=== PATIENT | female | born 1980 | race Caucasian/White ===

== ENCOUNTER → 2017-06-11 | Outpatient (CLI) | payer MEDICAID ==
[~2017-06-11] MED LIST: FOLIC ACID 1MG T1 MG PO; PRENATAL PLUS1 TA1 PO
== END ==
LOC: LAB 10:29
DX: O24.415 Gestational diabetes mellitus in pregnancy, controlled by oral hypoglycemic drugs (principal); Z36 Encounter for antenatal screening of mother

== ENCOUNTER 2017-06-28 09:24 | Inpatient (IN) | payer MEDICAID ==
[~2017-06-28] VITALS: Ht 154.9 cm; Wt 91.2 kg
[2017-06-28 09:44] LABS: HEMOGLOBIN 12.7 g/dL (12.2-16.2); LYMPH % 18.6 % (10-50.0)
[2017-06-28 09:57] LABS: BILIRUBIN, INDIRECT 0.44 mg/dL (0-0.9); BUN 4 mg/dL (7-18)
[2017-06-28 09:58] LABS: GFR (ESTIMATED) 112 ML/MIN (59-)
--- OUTSIDE RECORDS SUMMARY | 2017-06-28 14:45 | External Medical Summary Rpt ---
Author Author , ALISSA MAXWELL Address Unknown Phone [email or web address] Care Team Providers Care Nozzle Tender Name Role Phone MCGEE HOL, MCGEE Unavailable Unavailable [facility] Unavailable [facility]available [facility], [facility] Unavailable Unavailable [facility], [facility] Unavailable Unavailable DEPARTMENT, [facility] Unavailable Unavailable [facility], [facility] TOMASZ TER, TOMASZ TER Unavailable Unavailable [facility] Unavailable Unavailable [id number], Unavailable Unavailable [id number], Unavailable Unavailable [facility] ANA, T, ANA, T Unavailable Unavailable CHAD DORY, CHAD Unavailable Unavailable DORY SARAH JARRELL MD, Unavailable Unavailable SARAH BACA TAVON, PHUONG MONTES DE OCA Unavailable Unavailable HARPEL, HARPEL Unavailable Unavailable [facility] BROOK, HARPEL Unavailable Unavailable [facility] Un[facility] Unavailable [facility], [facility] SERRANO, SERRANO Unavailable Unavailable SERRANO, SERRANO Unavailable Unavailable SERRANO MANUEL, SERRANO MANUEL Unavailable Unavailable [facility], Unavailable Unavailable [facility] Unavailable Unavailable [facility], [facility] Unavailable Unavailable INTERNAL MED, [facility] FERREIRA KAYLA, FERREIRA Unavailable Unavailable KAYLA [facility] Unavailable Unavailable [facility], [facility], Unavailable [facility]available [facility] Unavailable [facility]available [facility], Unavailable Unavailable [facility], [facility], Unavailable Unavailable [facility], Unavailable Unavailable [facility] Unavailable Unavailable LLC, [facility] AAYUSH OCONNOR, Unavailable Unavailable AAYUSH OCONNOR SOKAN BAB, SOKAN BAB Unavailable Unavailable [facility], Unavailable Unavailable [facility] TAWANA SHE, Unavailable Unavailable TAWANA SHE [facility] Unavailable Unavailable [facility] Unavailable Unavailable CLINIC, [facility] CEASAR MCINTYRE, Unavailable Unavailable CEASAR MCINTYRE NEW SHARON D, Unavailable Unavailable NEW SHARON D Purpose Continuity of Care Document - 02-22-2008 through 2016 Problems Code Diagnosis DOS Provider Status Z131 ENCOUNTER 05-28-2017 [facility] SCREENING GROUP FOR DIABETES MELLITUS Z3480 ENC 05-28-2017 [facility] SUPERVISION PHYSICIANS OT NORMAL GROUP PREG UNS TRIMESTER N760 ACUTE 04-16-2017 [facility] VAGINITIS PHYSICIANS GROUP Z3483 ENC 04-16-2017 [facility] PHYSICIANS OTH NORMAL GROUP 3 TRIMESTER Z3492 ENC 03-26-2017 [facility] SUPER[facility]ION PHYSICIANS NORMAL GROUP UNS 2 TRIMESTER Z36 ENCOUNTER 02-18-2017 [facility] SCREENING OF MOTHER H5203 HYPERMETROP 12-17-2016 SERRANO IA BILATERAL N925 OTHER 11-26-2016 [facility] SPECIFIED PHYSICIANS IRREGULAR GROUP MENSTRUATIO N C62429 ENCOUNTER 11-26-2016 [facility] MANAGER OF COMPENSATION EXAM PHYSICIANS GENERAL RTN GROUP W/O ABNORMAL FIND O021 MISSED 04-07-2016 [facility] O034 INCOMPLETE 04-07-2016 [facility] W/O COMPLICATIO N A021 SALMONELLA 04-06-2016 [facility] Z96320 ENCOUNTER 04-06-2016 [facility] PREPROCEDUR INC AL LABORATORY EXAM O200 THREATENED 04-05-2016 [facility] G02861 ENCOUNTER 04-02-2016 SARAH Leonardo MANAGER OF COMPENSATION EXAM WESLY RAINES GENERAL RTN W/ABNORMAL FIND Z048 ENCOUNTER 04-02-2016 [facility] OTHER SPEC S REASONS E21789 MIGRAINE 04-01-2016 [facility] UNS NOT PHYSICIANS, INTRACT W/O PLLC STATUS MIGRAINOSUS O2691 04-01-2016 [facility] RELATED PHYSICIANS, CONDITIONS PLLC UNS 1ST TRIMESTER Z3A01 LESS THAN 8 04-01-2016 [facility] GESTATION INC OF R51 HEADACHE 03-31-2016 [facility] O039 COMPLETE OR 01-09-2016 [facility] P[facility] W/O COMPLICATIO N N912 AMENORRHEA 01-02-2016 [facility] Z3201 ENCOUNTER 01-02-2016 [facility] [facility] TEST RESULT POSITIVE Z3481 ENC 12-19-2015 [facility] OTH NORMAL 1 TRIMESTER B86 SCABIES 12-17-2015 [facility] INTERNAL MED 3670 HYPERMETROP 01-08-2011 [facility] V0481 NEED 12-10-2010 [facility] PROPHYLACTI HEALTH DEPARTMENT VACCINATION &INOCULATIO N FLU V5883 ENCOUNTER 08-25-2010 [facility] THERAPEUTIC CLINIC DRUG MONITORING 94549 FEVER 08-01-2009 [facility] INC 4659 ACUTE URIS 07-27-2009 [facility] UNSPECIFIED HOSPITAL SITE 3804 IMPACTED 05-17-2008 [facility] G43.909 MIGRAINE, UNSP, NOT INTRACTABLE , WITHOUT STATUS MIGRAINOSUS Z33.1 STATE, INCIDENTAL Z34.90 ENCNTR FOR SUPRVSN OF NORMAL , UNSP, UNSP TRIMESTER Medications Na ND Rx Da Fi Fi Am Da Di Ph RX Ph St me C No te ll ll ou ys ag ar # ys at rm s nt no ma ic us Or Da si cy ia de te s n re d AR 17 01 03 30 30 00 SO Ac OG 47 -2 -0 .0 00 PE ti ES 80 7- 3- 00 00 RS ve TE 76 20 20 55 RO 61 17 17 46 FA NE 0 85 NV LY [address] MG UG CA PS UL E IR 57 12 02 30 30 00 SO Ac ON 89 -2 -0 .0 00 PE ti 60 9- 3- 00 00 RS ve 65 70 20 20 55 31 16 17 22 FA MG 0 65 NV LY TA BL DR ET UG SE 31 10 10 1 30 30 SO 35 GH Ac RT 72 -0 -0 .0 PE 35 AN ti RA 20 1- 1- 00 RS 48 TA ve LI 21 20 20 NE 40 10 10 FA RA 5 NV ME HC LY SH L 10 DR 0 UG MG TA BL ET HY 00 10 10 1 90 30 SO [address] 18 -0 -0 .0 PE 35 AN ti OX 50 1- 1- 00 RS 49 TA ve YZ 61 20 20 IN 50 10 10 FA RA E 5 NV ME PA LY SH M 50 DR UG MG CA P 24 10 10 1 30 30 SO 35 GH Ac 38 -0 -0 .0 PE 35 AN ti 50 1- 1- 00 RS 52 TA ve 44 20 20 37 10 10 FA RA 8 NV ME LY SH DR UG TR 50 10 10 1 30 30 SO 35 TA Ac AZ 11 -0 -0 .0 PE 35 MA ti OD 10 1- 1- 00 RS 51 RE ve ON 43 20 20 N E 30 10 10 FA JA 50 3 NV NE LY T MG DR TA UG BL ET 00 02 04 00 15 4 SO 27 No Ac 60 -2 -0 .0 PE 71 t ti 33 6- 7- 00 RS 74 Av ve 88 20 20 ai 23 08 08 FA la 2 NV bl LY e DR UG 00 02 04 00 20 10 SO 27 No Ac 02 -2 -0 .0 PE 71 t ti 96 6- 7- 00 RS 73 Av ve 09 20 20 ai 66 08 08 FA la 0 NV bl LY e DR UG TR 60 02 03 00 60 30 CV 46 No Ac AZ 50 -2 -2 .0 S 21 t ti OD 52 0- 6- 00 PH 19 Av ve ON 65 20 20 AR ai E 30 08 08 MA la 50 1 CY bl e MG #3 01 TA 6 BL ET Results Labs Lab Lab Date Result Refere Interp Status Commen Order Detail nces retati t Range on Hemoglobin A1c in Blood (06-11-2017 10:30) Hemoglo 5.0 % 0.0% Normal complet bin A1c 017 - ed in 10:30 7.0% Blood Glucose [Mass/volume] in Serum or Plasma --3 hours post XXX challenge (06-09-2017 08:44) Glucose 2+ complet 017 ed [Presen 08:44 ce] in Urine by Test strip --3 hours post dose glucose Glucose [Mass/volume] in Serum or Plasma --3 hours post XXX challenge (06-09-2017 08:44) Glucose 3+ complet 017 ed [Presen 08:44 ce] in Urine by Test strip --2 hours post dose glucose Glucose [Mass/volume] in Serum or Plasma --3 hours post XXX challenge (06-09-2017 08:44) Glucose 3+ complet 017 ed [Presen 08:44 ce] in Urine by Test strip Glucose NEGATIV complet 017 E ed [Presen 08:44 ce] in Urine by Automat ed test strip Glucose [Presence] in Urine by Test strip --1 hour post 75 g glucose PO (05-21-2017 09:44) Glucose TRACE complet 017 ed [Presen 09:44 ce] in Urine by Test strip Procedures Procedure DOS Code Location Performer Comment SMR PRIM 08152 [facility] SRC WET 7 PHYSICIAN [place] GROUP NFCT AGT US PREG 19431 [facility] UTERUS 7 PHYSICIAN REAL TIME S GROUP F/U TRNSABDL PER FETUS COLLECTIO 70981 [facility] N VENOUS 7 [facility] BLOOD INC INC VENIPUNCT URE OPHTH 97130 [facility] 7 XM&EVAL COMPRE NEW PT 1/> VST CULTURE 18372 [facility] CHLAMYDIA 6 PHYSICIAN ANY S GROUP SOURCE URINE 55052 [facility] 6 PHYSICIAN TEST S GROUP VISUAL COLOR CMPRSN METHS IADNA 86108 [facility] NEISSERIA 6 PHYSICIAN S GROUP GONORRHOE AE DIRECT PROBE TQ IADNA 02857 [facility] HERPES 6 PHYSICIAN SIMPLX S GROUP VIRUS DIRECT PROBE TQ IAADIADOO 53638 [facility] PEDIATRIC 6 PHYSICIAN PRODUCTS TRICHOMON S GROUP LLC VAGINALIS URINLS 78089 [facility] DIP 6 PHYSICIAN STICK/TAB S GROUP LET REAGNT NON-AUTO MICRSCPY UNCLASSIF J3490 [facility] IED DRUGS 6 [facility] INC INC BLOOD 24796 [facility] COUNT 6 [facility] HEMOGLOBI INC INC N BLOOD 42267 [facility] COUNT 6 [facility] HEMATOCRI INC INC T ANESTHESI 28279 [facility] A INDUCED 6 [place] [address] [facility] SURG 6 [facility] PATHOLOGY GROSS&DORY ROSCOPIC EXAM INJECTION J2405 [facility] 6 [facility] ONDANSETR INC INC ON HCL PER 1 MG COLLECTIO 28977 [facility] N VENOUS 6 [facility] [place] [address] SARAH JARRELL INCOMPLET 6 WESLY RAINES [place]OOK E ANY TRIMESTER SURGICAL COLLECTIO 42503 [facility] N VENOUS 6 [facility] BLOOD INC INC VENIPUNCT URE BLOOD 88641 [facility] COUNT 6 [facility] COMPLETE INC INC AUTO&AUTO DIFRNTL WBC CULTURE 73655 [facility] BACTERIAL 6 [facility] INC INC QUANTTATI VE COLONY COUNT URINE URNLS DIP 19757 [facility] 6 [facility] STICK/TAB INC INC LET REAGENT AUTO MICROSCOP Y BLOOD 70274 [facility] TYPING 6 [facility] SEROLOGIC INC INC RH (D) ANTIBODY 11416 [facility] SCREEN 6 [facility] RBC EACH INC INC SERUM TECHNIQUE BLOOD 67894 [facility] TYPING 6 [facility] SEROLOGIC INC INC ABO GONADOTRO 98127 [facility] PIN 6 [facility] CHORIONIC INC INC QUANTITAT FLAKITA DRUG TST G0477 [facility] PRESUMP;C 6 [facility] PBL BEING INC INC READ DC OPT OBV ONLY CULTURE 93767 SARAH JARRELL CHLAMYDIA 6 WESLY RAINES [place]OOK ANY SOURCE IADNA 87800 [facility] HERPES 6 REFERNCE REFERNCE SOMPLX LABORATOR LABORATOR VIRUS IES IES AMPLIFIED PROBE TQ IADNA 98249 SARAH JARRELL NEISSERIA 6 WESLY RAINES BROOK GONORRHOE AE DIRECT PROBE TQ IADNA 86244 [facility] NEISSERIA 6 REFERNCE REFERNCE LABORATOR LABORATOR GONORRHOE IES IES AE AMPLIFIED PROBE TQ IADNA NOS 89017 BIO BIO 6 REFERNCE REFERNCE AMPLIFIED LABORATOR LABORATOR PROBE TQ IES IES EACH ORGANISM IADNA 10744 BIO BIO GARDNEREL 6 REFERNCE REFERNCE LA LABORATOR LABORATOR VAGINALIS IES IES AMPLIFIED PROBE TQ CYTP C/V 45694 [facility] B[facility] AUTO THIN 6 REFERNCE REFERNCE LYR LABORATOR LABORATOR PREPJ SCR IES IES MNL RESCR PHYS IADNA 64387 [facility]IO CHLAMYDIA 6 REFERNCE REFERNCE LABORATOR LABORATOR TRACHOMAT IES IES IS AMPLIFIED PROBE TQ IADNA 16265 SARAH JARRELL HERPES 6 WESLY RAIN[place]OOK SIMPLX VIRUS DIRECT PROBE TQ URINLS 79023 SARAH JARRELL DIP 6 WESLY RAINES BROOK STICK/TAB LET REAGNT NON-AUTO MICRSCPY IADNA 12240 [facility]IO BIO TRICHOMON 6 REFERNCE REFERNCE LABORATOR LABORATOR VAGINALIS IES IES AMPLIFIED PROBE TECH IAADIADOO 49163 SARAH SMITH R Luis JARRELL MD TRICHOMON VAGINALIS URINE 63450 SARAH JARRELL 6 WESLY RAINES BROOK TEST [place] [address] [facility] INFUSION 6 [facility] THERAPY/P INC INC ROPHYLAXI S /DX 1ST TO 1 HR THERAPEUT 04970 [facility] IC 6 [facility] INJECTION INC INC IV PUSH EACH NEW DRUG BLOOD 81801 [facility] COUNT 6 [facility] COMPLETE INC INC AUTO&AUTO DIFRNTL WBC UNCLASSIF J3490 [facility] IED DRUGS 6 [facility] INC INC GONADOTRO 76098 [facility] PIN 6 [facility] CHORIONIC INC INC QUALITATI VE COMPREHEN 07626 [facility] SIVE 6 [facility] METABOLIC INC INC PANEL URNLS DIP 34567 [facility] 6 [facility] STICK/TAB INC INC LET REAGENT AUTO MICROSCOP Y URINE 09058 [facility] 6 [facility] TEST INC INC VISUAL COLOR CMPRSN METHS GONADOTRO 90718 [facility] PIN 6 [facility]OS[facility] CHORIONIC INC INC QUANTITAT FLAKITA THERAPEUT 03021 GISELE JAQUEZ IC 6 [facility] TIC/DX INJECTION SUBQ/IM INJECTION J2270 GISELE JAQUEZ MORPHINE 6 [facility] UP TO 10 MG URINE 27379 [place] [facility] 6 [facility] TEST HEALTH VISUAL CARE COLOR CMPRSN METHS URINALYSI 86071 [facility] S 6 [facility] IA SCR CARE XCPT CULTURE/D IPSTICK [place] MISSED 47058 [facility] 6 [facility] TRIMESTER CARE SURGICAL INJECTION J[address] CEFAZOLIN SODIUM 500 MG INJECTION J1885 [address] KETOROLAC TROMETHAM INE PER 15 MG INJECTION J3010 [facility] FENTANYL [address] [place] [address] CITRATE 0.1 MG ANESTHESI 38214 [facility] [place] [place] A 6 ANESTHESI INCOMPLET A PSC E/[place] [address] [facility] SURG [address] [place] [address] PATHOLOGY GROSS&DORY ROSCOPIC EXAM INJECTION J[address] ONDANSETR ON HCL PER 1 MG INJECTION J1100 [address] DEXAMETHO SONE SODIUM PHOSPHATE 1 MG INJECTION J2001 [address] LIDOCAINE HCL INTRAVENO US INFUS 10 MG INJECTION J2590 [facility] OXYTOCIN [address] [place] [address] UP TO 10 UNITS RINGERS J7120 [facility] LACTATE [address] [place] [address] INFUSION UP TO 1000 CC URINE 72008 [facility] 6 [facility] TEST HEALTH VISUAL CARE COLOR CMPRSN METHS URINALYSI 18287 [facility] S 6 [facility] IA SCR CARE XCPT CULTURE/D IPSTICK URINALYSI 29139 [facility] S 6 [facility] IA SCR CARE XCPT CULTURE/D IPSTICK URINE 62591 [facility] 6 [facility] HEALTH [place]ISUAL [place] [address] [facility] 6 [facility] UTERUS 14 HEALTH WK CARE TRANSABDL GESTAT US PREG 18082 [facility] UTERUS 6 PRIMARY JR FRANCISCO JAVIER REAL TIME HEALTH W/IMAGE CARE DCMTN TRANSVAG GONADOTRO 74291 PATH PATH PIN 6 GROUP GROUP [facility] QUANTITAT FLAKITA OBSTETRIC 14509 PATH PATH PANEL 6 GROUP GROUP [facility] DRUG TEST G0479 PATH PATH 6 GROUP GROUP PRESUMP;I [facility]S [facility] [place] [address] PATH PATH THYROID 6 GROUP GROUP STIMULATI [facility] NG HORMONE TSH CFTR GENE [address] ANALYSIS 6 D COMMON PATHOLOGI VARIANTS STS LLC ANTIBODY 47325 PATH PATH VARICELLA 6 GROUP GROUP -[facility]OSTER [facility] HEPATITIS 29483 PATH PATH C 6 GROUP GROUP ANTIBODY [facility] DRUG TEST G0480 PATH PATH DEFINITV [address] ID [facility] METH P DAY 1-7 DRUG CL OPHTH 57303 [facility] SERRANO [facility] 1 VISION XM&EVAL COMPRE NEW PT 1/> VST ECG [address] [facility] ROUTINE 0 ANASTACIO D ECG CARDIOLOG W/LEAST Y CLINIC 12 LDS I&R ONLY IAADIADOO [address] THERAPEUT [address] PROPHYLAC [facility] TIC/DX INJECTION SUBQ/IM WOUND G0168 [facility] BURNS CLOS[facility] 8 [facility]OSPITAL TISSUE ADHESIVE ONLY Encounters Encounter Start End Date Code Location Performer Type Date OFFICE 62871 [facility] OUTPATIEN 7 7 PHYSICIAN T VISIT S GROUP 15 MINUTES OFFICE 04869 [facility] OUTPATIEN 7 7 PHYSICIAN T VISIT S GROUP 15 MINUTES OFFICE 93072 [facility] OUTPATIEN 7 7 PHYSICIAN T VISIT S GROUP 15 MINUTES OFFICE 21589 [facility] OUTPATIEN 7 7 PHYSICIAN T VISIT S GROUP 15 MINUTES OFFICE 66417 [facility] OUTPATIEN 7 7 PHYSICIAN T VISIT S GROUP 15 MINUTES [facility] 7 7 [facility] 48607 [facility] OUTPATIEN 7 7 PHYSICIAN T VISIT S GROUP 15 MINUTES OFFICE 01366 [facility] OUTPATIEN 7 7 PHYSICIAN T VISIT S GROUP 15 MINUTES [facility] 55975 [facility] [place] PREVENTIV 6 6 PHYSICIAN E MED EST S GROUP PATIENT 18-39 YRS HOSPITAL [facility] - 6 6 [facility] - 6 6 [facility] - 6 6 [facility] - 6 6 [facility] INITIAL 21151 SARAH JARRELL PREVENTIV 6 6 W[facility] [place] MEDICINE NEW PT AGE 18-39YRS EMERGENCY 20948 [facility] 6 6 [facility]NOTE 3] T VISIT MODERATE SEVERITY EMERGENCY 30720 KATHY BONILLA 6 6 [facility] T VISIT HIGH/URGE NT SEVERITY HOSPITAL [facility] - 6 6 [facility] 12403 [facility] 6 [facility] [place] T VISIT LOW/MODER SEVERITY [facility] - 6 6 [facility] EMERGENC[facility] 77342 [facility] 6 6 [facility] T VISIT PHYS MODERATE SEVERITY [facility]OSPITAL [facility] - 6 6 [facility] OFFICE 74761 [facility] 6 6 PRIMARY T VISIT HEALTH 15 CARE MINUTES OFFICE 92349 [place] OUTPATIEN 6 6 PRIMARY JR FRANCISCO JAVIER T 60 HEALTH MINUTES CARE OFFICE 59054 [facility] 6 6 [facility] T 30 INTERNAL MINUTES MED EMERGENCY 99311 [facility] 9 9 [facility] T VISIT PHYS INC MODERATE SEVERITY EMERGENCY 87211 [facility] 9 9 [facility] T VISIT LOW/MODER SEVERITY HOSPITAL [facility] - 9 9 [facility] T EMERGENCY [address] KATY [address] [facility] T VISIT LOW/MODER SEVERITY EMERGENCY 65511 KATY OCONNOR 8 8 CO , [facility] T VISIT LIMITED/M INOR [facility] KATY Diallo 8 8 [facility] T
--- OUTSIDE RECORDS SUMMARY | 2017-06-28 14:45 | External Medical Summary Rpt ---
Author Author , ALISSA MAXWELL Address Unknown Phone [email or web address] Care Team Providers Care Product Support Sales Representative Name Role Phone MCGEE HOL, MCGEE Unavailable Unavailable [facility] Unavailable [facility]available [facility], [facility] Unavailable Unavailable [facility] Unavailable Unavailable DEPARTMENT, [facility] Unavailable [facility]available HOSPITAL, [facility] TOMASZ TER, TOMASZ TER Unavailable Unavailable [facility] Unavailable Unavailable [id number], Unavailable Unavailable [id number], Unavailable Unavailable [facility] [...] Unavailable SERRANO MANUEL, SERRANO MANUEL Unavailable Unavailable [facility], Unavailable Unavailable [facility] Unavailable [facility]available [facility], [facility] Unavailable Unavailable INTERNAL MED, [facility] FERREIRA KAYLA, FERREIRA Unavailable Unavailable KAYLA [facility] Unavailable Unavailable [facility], [facility], Unavailable [facility]available [facility] Unavailable Unavailable LABS, [...] TAWANA SHE, Unavailable Unavailable TAWANA SHE [facility] Unavailable Unavailable [facility] Unavailable Unavailable CLINIC, [facility] CEASAR MCINTYRE, Unavailable Unavailable CEASAR MCINTYRE [facility], Unavailable Unavailable [facility] Purpose Continuity of Care Document - 02-22-2008 through 2016 Problems Code Diagnosis DOS Provider Status Z131 ENCOUNTER 05-28-2017 [facility] SCREENING GROUP FOR DIABETES MELLITUS Z3480 ENC 05-28-2017 [facility]ANS OT NORMAL GROUP PREG UNS TRIMESTER N760 ACUTE 04-16-2017 [facility] VAGINITIS PHYSICIANS GROUP Z3483 ENC 04-16-2017 [facility]ANS OTH NORMAL GROUP 3 TRIMESTER Z3492 ENC 03-26-2017 [facility] PHYSICIANS NORMAL GROUP UNS 2 TRIMESTER Z36 ENCOUNTER 02-18-2017 [facility] SCREENING OF MOTHER H5203 HYPERMETROP 12-17-2016 SERRANO IA BILATERAL N925 OTHER 11-26-2016 [facility] SPECIFIED PHYSICIANS IRREGULAR GROUP MENSTRUATIO N M54592 ENCOUNTER 11-26-2016 [facility] DESIGN COORDINATOR EXAM PHYSICIANS GENERAL RTN GROUP W/O ABNORMAL FIND O021 MISSED 04-07-2016 [facility] O034 INCOMPLETE 04-07-2016 [facility] W/O COMPLICATIO N A021 SALMONELLA 04-06-2016 [facility] I77828 ENCOUNTER 04-06-2016 [facility] PREPROCEDUR INC AL LABORATORY EXAM O200 THREATENED 04-05-2016 [facility] O60119 ENCOUNTER 04-02-2016 SARAH Leonardo DESIGN COORDINATOR EXAM WESLY RAINES GENERAL RTN W/ABNORMAL FIND Z048 ENCOUNTER 04-02-2016 [facility]ATORIE OTHER SPEC S REASONS N76199 MIGRAINE 04-01-2016 [facility] UNS NOT PHYSICIANS, INTRACT W/O PLLC STATUS MIGRAINOSUS O2691 04-01-2016 [facility] RELATED PHYSICIANS, CONDITIONS PLLC UNS 1ST TRIMESTER Z3A01 LESS THAN 8 04-01-2016 [facility] GESTATION INC OF R51 HEADACHE 03-31-2016 [facility] O039 COMPLETE OR 01-09-2016 [facility] PSC W/O COMPLICATIO N N912 AMENORRHEA 01-02-2016 [facility] Z3201 ENCOUNTER 01-02-2016 [place] [facility] TEST RESULT POSITIVE Z3481 ENC 12-19-2015 [facility] OTH NORMAL 1 TRIMESTER B86 SCABIES 12-17-2015 [facility] INTERNAL MED 3670 HYPERMETROP 01-08-2011 [facility] V0481 NEED 12-10-2010 [facility] PROPHYLACTI HEALTH DEPARTMENT VACCINATION &INOCULATIO N FLU V5883 ENCOUNTER 08-25-2010 [facility] CARDIOLOG[facility] THERAPEUTIC CLINIC DRUG MONITORING 98948 FEVER 08-01-2009 [facility] PHYS INC 4659 ACUTE URIS 07-27-2009 [facility] UNSPECIFIED HOSPITAL SITE 3804 IMPACTED 05-17-2008 [facility] G43.909 MIGRAINE, UNSP, NOT INTRACTABLE , [...] ia de te s n re d TN 17 01 03 30 30 00 SO Ac OG 47 -2 -0 .0 00 PE ti ES 80 7- 3- 00 00 RS ve TE 76 20 20 55 RO 61 17 17 46 FA NE 0 85 NC LY [address] MG UG CA PS UL E IR 57 12 02 30 30 00 SO Ac ON 89 -2 -0 .0 00 PE ti 60 9- 3- 00 00 RS ve 65 70 20 20 55 31 16 17 22 FA MG 0 65 NC LY TA BL DR ET UG SE 31 10 10 1 30 30 SO 35 GH Ac RT 72 -0 -0 .0 PE 35 AN ti RA 20 1- 1- 00 RS 48 TA ve LI 21 20 20 NE 40 10 10 FA RA 5 NC ME HC LY SH L 10 DR 0 UG MG TA BL ET HY 00 10 10 1 90 30 SO [address] 18 -0 -0 .0 PE 35 AN ti OX 50 1- 1- 00 RS 49 TA ve YZ 61 20 20 IN 50 10 10 FA RA E 5 NC ME PA LY SH M 50 DR UG MG CA P 24 10 10 1 30 30 SO 35 GH Ac 38 -0 -0 .0 PE 35 AN ti 50 1- 1- 00 RS 52 TA ve 44 20 20 37 10 10 FA RA 8 NC ME LY SH DR UG TR 50 10 10 1 30 30 SO 35 TA Ac AZ 11 -0 -0 .0 PE 35 MA ti OD 10 1- 1- 00 RS 51 RE ve ON 43 20 20 N E 30 10 10 FA JA 50 3 NC NE LY T MG DR TA UG BL ET 00 02 04 00 15 4 SO 27 No Ac 60 -2 -0 .0 PE 71 t ti 33 6- 7- 00 RS 74 Av ve 88 20 20 ai 23 08 08 FA la 2 NC bl LY e DR UG 00 02 04 00 20 10 SO 27 No Ac 02 -2 -0 .0 PE 71 t ti 96 6- 7- 00 RS 73 Av ve 09 20 20 ai 66 08 08 FA la 0 NC bl LY e DR UG TR 60 [...] DOS Code Location Performer Comment SMR PRIM 09375 [facility] SRC WET 7 PHYSICIAN MOUNT S GROUP NFCT AGT US PREG 48993 [facility] UTERUS 7 PHYSICIAN REAL TIME S GROUP F/U TRNSABDL PER FETUS COLLECTIO 57021 [facility] N VENOUS 7 [facility] BLOOD INC INC VENIPUNCT URE OPHTH 15749 [facility] 7 XM&EVAL COMPRE NEW PT 1/> VST CULTURE 21577 [facility] CHLAMYDIA 6 PHYSICIAN ANY S GROUP SOURCE URINE 11980 [facility] 6 PHYSICIAN TEST S GROUP VISUAL COLOR CMPRSN METHS IADNA 54687 [facility] NEISSERIA 6 PHYSICIAN S GROUP GONORRHOE AE DIRECT PROBE TQ IADNA 51317 [facility] HERPES 6 PHYSICIAN SIMPLX S GROUP VIRUS DIRECT PROBE TQ IAADIADOO 47567 [facility] PEDIATRIC 6 PHYSICIAN PRODUCTS TRICHOMON S GROUP LLC VAGINALIS URINLS 58197 [facility] DIP 6 PHYSICIAN STICK/TAB S GROUP LET REAGNT NON-AUTO MICRSCPY UNCLASSIF J3490 [facility] IED DRUGS 6 [facility] INC INC BLOOD 03387 [facility] COUNT 6 [facility] HEMOGLOBI INC INC N BLOOD 85397 [facility] COUNT 6 [facility]OS[facility] HEMATOCRI INC INC T ANESTHESI 29262 [facility] A INDUCED 6 [place] [address] [facility] SURG 6 [facility] PATHOLOGY GROSS&DORY ROSCOPIC EXAM INJECTION J2405 [facility] 6 [facility] ONDANSETR INC INC ON HCL PER 1 MG COLLECTIO 15596 [facility] N VENOUS 6 [facility] [place] [address] SARAH JARRELL INCOMPLET 6 WESLY RA[place] E ANY TRIMESTER SURGICAL COLLECTIO 59104 [facility] N VENOUS 6 [facility] BLOOD INC INC VENIPUNCT URE BLOOD 31924 [facility] COUNT 6 [facility] COMPLETE INC INC AUTO&AUTO DIFRNTL WBC CULTURE 26653 [facility] BACTERIAL 6 [facility] INC INC QUANTTATI VE COLONY COUNT URINE URNLS DIP 97324 [facility] 6 [facility] STICK/TAB INC INC LET REAGENT AUTO MICROSCOP Y BLOOD 82119 [facility] TYPING 6 [facility] SEROLOGIC INC INC RH (D) ANTIBODY 20279 [facility] SCREEN 6 [facility] RBC EACH INC INC SERUM TECHNIQUE BLOOD 38076 [facility] TYPING 6 [facility] SEROLOGIC INC INC ABO GONADOTRO 21107 [facility] PIN 6 [facility] CHORIONIC INC INC QUANTITAT FLAKITA DRUG TST G0477 [facility] [place] PRESUMP;C 6 [facility] PBL BEING INC INC READ DC OPT OBV ONLY CULTURE 90962 SARAH JARRELL CHLAMYDIA 6 WESLY [place] ANY SOURCE IADNA 06754 [facility] HERPES 6 REFERNCE REFERNCE SOMPLX LABORATOR LABORATOR VIRUS IES IES AMPLIFIED PROBE TQ IADNA 30809 SARAH JARRELL NEISSERIA 6 WESLY RAINES [place]OOK GONORRHOE AE DIRECT PROBE TQ IADNA 56821 [facility] NEISSERIA 6 REFERNCE REFERNCE LABORATOR LABORATOR GONORRHOE IES IES AE AMPLIFIED PROBE TQ IADNA NOS 70114 BIO BIO 6 REFERNCE REFERNCE AMPLIFIED LABORATOR LABORATOR PROBE TQ IES IES EACH ORGANISM IADNA 25846 BIO BIO GARDNEREL 6 REFERNCE REFERNCE LA LABORATOR LABORATOR VAGINALIS IES IES AMPLIFIED PROBE TQ CYTP C/V 00356 [facility] AUTO THIN 6 REFERNCE REFERNCE LYR LABORATOR LABORATOR PREPJ SCR IES IES MNL RESCR PHYS IADNA 02803 BIO BIO CHLAMYDIA 6 REFERNCE REFERNCE LABORATOR LABORATOR TRACHOMAT IES IES IS AMPLIFIED PROBE TQ IADNA 55959 SARAH JARRELL HERPES 6 WESLY [place] SIMPLX VIRUS DIRECT PROBE TQ URINLS 22340 SARAH JARRELL DIP 6 WESLY [place] STICK/TAB LET REAGNT NON-AUTO MICRSCPY IADNA 26495 [facility]IO [facility]IO TRICHOMON 6 REFERNCE REFERNCE LABORATOR LABORATOR VAGINALIS IES IES AMPLIFIED PROBE TECH IAADIADOO 37559 SARAH SMITH R Luis JARRELL MD TRICHOMON VAGINALIS URINE 39992 SARAH JARRELL 6 WESLY [place] [address] [facility] INFUSION 6 [facility] THERAPY/P INC INC ROPHYLAXI S /DX 1ST TO 1 HR THERAPEUT 07137 [facility] IC 6 [facility] INJECTION INC INC IV PUSH EACH NEW DRUG BLOOD 15128 [facility] COUNT 6 [facility] COMPLETE INC INC AUTO&AUTO DIFRNTL WBC UNCLASSIF J3490 [facility] IED DRUGS 6 [facility] INC INC GONADOTRO 37613 [facility] PIN 6 [facility] CHORIONIC INC INC QUALITATI VE COMPREHEN 63110 [facility] SIVE 6 [facility] METABOLIC INC INC PANEL URNLS DIP 04096 [facility] 6 [facility] STICK/TAB INC INC LET REAGENT AUTO MICROSCOP Y URINE 43258 [facility] 6 [facility] TEST INC INC VISUAL COLOR CMPRSN METHS GONADOTRO 66761 [facility] PIN 6 [facility] CHORIONIC INC INC QUANTITAT FLAKITA THERAPEUT 99828 GISELE JAQUEZ IC 6 [facility] TIC/DX INJECTION SUBQ/IM INJECTION J2270 GISELE JAQUEZ MORPHINE 6 [facility] UP TO 10 MG URINE 01888 [place] [facility] 6 [facility] TEST HEALTH VISUAL CARE COLOR CMPRSN METHS URINALYSI 62423 [place] [facility] S 6 [facility] IA SCR CARE XCPT CULTURE/D IPSTICK [place] MISSED 99339 R[facility]ER [facility] 6 [facility] TRIMESTER CARE SURGICAL INJECTION J[address] CEFAZOLIN SODIUM 500 MG INJECTION J1885 [address] KETOROLAC TROMETHAM INE PER 15 MG INJECTION J3010 [facility] FENTANYL [address] [place] [address] CITRATE 0.1 MG ANESTHESI 14592 [facility] [place] A 6 ANESTHESI INCOMPLET A PSC E/[place] [address] [facility] SURG [address] [place] [address] PATHOLOGY GROSS&DORY ROSCOPIC EXAM INJECTION J[address] ONDANSETR ON HCL PER 1 MG INJECTION J[address] DEXAMETHO SONE SODIUM PHOSPHATE 1 MG INJECTION J2001 [address] LIDOCAINE HCL INTRAVENO US INFUS 10 MG INJECTION J2590 [facility] OXYTOCIN [address] [place] [address] UP TO 10 UNITS RINGERS J7120 [facility] LACTATE [address] [place] [address] INFUSION UP TO 1000 CC URINE 51580 [facility] 6 [facility] TEST HEALTH VISUAL CARE COLOR CMPRSN METHS URINALYSI 21417 [place] [facility] S 6 [facility] IA SCR CARE XCPT CULTURE/D IPSTICK URINALYSI 28745 [facility] [place] S 6 [facility] IA SCR CARE XCPT CULTURE/D IPSTICK URINE 27977 [place] [facility] 6 [facility] TEST HEALTH [place]ISUAL [place] [address] [facility] 6 [facility] UTERUS 14 HEALTH WK CARE TRANSABDL GESTAT US PREG 74033 [facility] UTERUS 6 PRIMARY JR FRANCISCO JAVIER REAL TIME HEALTH W/IMAGE CARE DCMTN TRANSVAG GONADOTRO 42176 [facility] PIN 6 GROUP GROUP [facility] QUANTITAT FLAKITA OBSTETRIC 87573 PATH PATH PANEL 6 GROUP GROUP [facility] DRUG TEST G0479 PATH PATH 6 GROUP GROUP PRESUMP;I [facility]S [facility] [place] [address] [address] PATH THYROID 6 GROUP GROUP STIMULATI [facility] NG HORMONE TSH CFTR GENE [address] ANALYSIS 6 D COMMON PATHOLOGI VARIANTS STS LLC ANTIBODY 24122 [address] PATH VARICELLA 6 GROUP GROUP -ZOSTER [facility] LABS [facility] HEPATITIS 60181 [address] PATH C 6 GROUP GROUP ANTIBODY [facility] DRUG TEST G0480 PATH PATH DEFINITV [address] ID LABS [facility] METH P DAY 1-7 DRUG CL OPHTH 50335 [facility] 2001 1 VISION XM&EVAL COMPRE NEW PT 1/> VST ECG [address]17 [facility] ROUTINE 0 ANASTACIO D ECG CARDIOLOG W/LEAST Y CLINIC 12 LDS I&R ONLY IAADIADOO [address] THERAPEUT [address] PROPHYLAC [facility] TIC/DX INJECTION SUBQ/IM WOUND G0168 [facility] BURNS CLOSURE 8 [facility] TISSUE ADHESIVE ONLY Encounters Encounter Start End Date Code Location Performer Type Date OFFICE 59933 [facility] OUTPATIEN 7 7 PHYSICIAN T VISIT S GROUP 15 MINUTES OFFICE 99598 [facility] OUTPATIEN 7 7 PHYSICIAN T VISIT S GROUP 15 MINUTES OFFICE 32645 [facility] OUTPATIEN 7 7 PHYSICIAN T VISIT S GROUP 15 MINUTES OFFICE 95950 [facility] OUTPATIEN 7 7 PHYSICIAN T VISIT S GROUP 15 MINUTES OFFICE 54026 [facility] OUTPATIEN 7 7 PHYSICIAN T VISIT S GROUP 15 MINUTES [facility]OSPITAL [facility] - 7 7 [facility] 45173 [facility] OUTPATIEN 7 7 PHYSICIAN T VISIT S GROUP 15 MINUTES OFFICE 89028 [facility] OUTPATIEN 7 7 PHYSICIAN T VISIT S GROUP 15 MINUTES [facility] 54681 [facility] PREVENTIV 6 6 PHYSICIAN E MED EST S GROUP PATIENT 18-39 YRS HOSPITAL [facility] - 6 6 [facility] - 6 6 [facility] - 6 6 [facility] - 6 6 [facility] INITIAL 29894 SARAH JARRELL PREVENTIV 6 6 [facility] [place] MEDICINE NEW PT AGE 18-39YRS EMERGENCY 50573 [facility] 6 6 [facility] T VISIT MODERATE SEVERITY EMERGENCY 78679 KATHY BONILLA [address] [facility] S, [facility] T VISIT HIGH/URGE NT SEVERITY HOSPITAL [facility] - 6 6 [facility] EMERGENCY 52389 [facility] 6 [facility] T VISIT LOW/MODER SEVERITY [facility] [place] - 6 6 [facility] EMERGENCY 81541 [facility] 6 6 [facility] EMERGENCY T VISIT PHYS MODERATE SEVERITY HOSPITAL [facility] - 6 6 [facility] OFFICE 49687 [facility] 6 6 PRIMARY T VISIT HEALTH 15 CARE MINUTES OFFICE 76286 [place] [facility] OUTPATIEN 6 6 PRIMARY JR FRANCISCO JAVIER T 60 HEALTH MINUTES CARE OFFICE 02342 [facility] [facility] OUTPATIEN 6 6 [facility] T 30 INTERNAL MINUTES MED EMERGENCY 45647 [facility] 9 9 [facility] EMERGENCY T VISIT PHYS INC MODERATE SEVERITY EMERGENCY 61092 [place] 9 9 [facility] T VISIT LOW/MODER SEVERITY [facility]OSPITAL [place] - [facility] EMERGENCY 26055 KAT[facility] 8 8 CO [facility] T VISIT LOW/MODER SEVERITY EMERGENCY 50689 KATY OCONNOR 8 8 CO , [facility] T VISIT LIMITED/M INOR [facility] KATY Diallo 8 8 CO [facility] T
--- OUTSIDE RECORDS SUMMARY | 2017-06-28 14:47 | External Medical Summary Rpt ---
Demographics Preferred Language Beninese Marital Status Unknown Spiritism Affiliation Unknown Race Unknown Ethnic Group Unknown Author Author , ALISSA MAXWELL Address Unknown Phone Immunization Unable to retrieve immunization data due to connection failure with Immunization Registry. Please try again later.
--- OUTSIDE RECORDS SUMMARY | 2017-06-28 14:47 | External Medical Summary Rpt ---
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, Unavailable Unavailable [facility] ANA, T, ANA, T Unavailable Unavailable CHAD DORY, CHAD Unavailable Unavailable DORY SARAH JARRELL MD, Unavailable Unavailable SARAH MONTES DE OCA, PHUONG MONTES DE OCA Unavailable Unavailable HAR[facility], HARPEL Unavailable Unavailable [facility] BROOK, HARPEL Unavailable Unavailable [facility] Un[facility], [facility] SERRANO, SERRANO Unavailable Unavailable SERRANO, SERRANO Unavailable Unavailable SERRANO MANUEL, SERRANO MANUEL Unavailable Unavailable [facility], Unavailable Unavailable [facility] Unavailable [facility]available HEALTH CARE, [facility] Unavailable [facility]available INTERNAL MED, [facility] INTERNAL MED FERREIRA KAYLA, FERREIRA Unavailable Unavailable K[facility]LA [facility] Unavailable Unavailable [facility], [facility]available [facility]available [facility] Unavailable Unavailable LABS, [...] TAWANA SHE, Unavailable Unavailable TAWANA SHE [facility] Unavailable [facility]available [facility] Unavailable Unavailable CLINIC, [facility] CEASAR MCINTYRE, Unavailable Unavailable CEASAR MCINTYRE [place], Unavailable Unavailable [place] Purpose Continuity of Care Document - 02-22-2008 through 2016 Problems Code Diagnosis DOS Provider Status Z131 ENCOUNTER 05-28-2017 [facility] SCREENING [facility] FOR DIABETES MELLITUS Z3480 ENC 05-28-2017 [facility] OT NORMAL GROUP PREG UNS TRIMESTER N760 ACUTE 04-16-2017 [facility] GROUP Z3483 ENC 04-16-2017 [facility] OTH NORMAL GROUP 3 TRIMESTER Z3492 ENC 03-26-2017 [facility] NORMAL GROUP UNS 2 TRIMESTER Z36 ENCOUNTER 02-18-2017 [facility] SCREENING OF MOTHER H5203 HYPERMETROP 12-17-2016 SERRANO IA BILATERAL N925 OTHER 11-26-2016 [facility] IRREGULAR GROUP MENSTRUATIO N B69979 ENCOUNTER 11-26-2016 [facility] CHIEF EXAM PHYSICIANS GENERAL RTN GROUP W/O ABNORMAL FIND O021 MISSED 04-07-2016 [facility] O034 INCOMPLETE 04-07-2016 [facility] W/O COMPLICATIO N A021 SALMONELLA 04-06-2016 [facility] N71473 ENCOUNTER 04-06-2016 [facility] PREPROCEDUR INC AL LABORATORY EXAM O200 THREATENED 04-05-2016 [facility] V02432 ENCOUNTER 04-02-2016 SARAH Leonardo L[employer] CHIEF EXAM WESLY RAINES GENERAL RTN W/ABNORMAL FIND Z048 ENCOUNTER 04-02-2016 [facility] OTHER SPEC S REASONS Q00148 MIGRAINE 04-01-2016 KATH[facility] UNS NOT PHYSICIANS, INTRACT W/O PLLC STATUS MIGRAINOSUS O2691 04-01-2016 [facility] RELATED PHYSICIANS, CONDITIONS PLLC UNS 1ST TRIMESTER Z3A01 LESS THAN 8 04-01-2016 [facility] GESTATION [facility] OF R51 HEADACHE 03-31-2016 [facility] O039 COMPLETE OR 01-09-2016 NEW [facility] W/O COMPLICATIO N N912 AMENORRHEA 01-02-2016 [facility] Z3201 ENCOUNTER 01-02-2016 [facility] TEST RESULT POSITIVE Z3481 ENC 12-19-2015 [facility] OTH NORMAL 1 TRIMESTER B86 SCABIES 12-17-2015 [facility] INTERNAL MED 3670 HYPERMETROP 01-08-2011 [facility] V0481 NEED 12-10-2010 [facility] &INOCULATIO N FLU V5883 ENCOUNTER 08-25-2010 [facility] THERAPEUTIC CLINIC DRUG MONITORING 28705 FEVER 08-01-2009 [facility] PH[facility] 4659 ACUTE URIS 07-27-2009 [facility] SITE 3804 IMPACTED 05-17-2008 [facility] Medications Na ND Rx Da Fi Fi Am Da Di Ph RX Ph St me C No te ll ll ou ys ag ar # ys at rm s nt no ma ic us Or Da si cy ia de te s n re d [place] 17 01 03 30 30 00 SO [...] MG #3 01 TA 6 BL ET Procedures Procedure DOS Code Location Performer Comment [facility] PRIM 31938 [facility] SRC WET 7 PHYSICIAN [place] GROUP NFCT AGT US PREG 37008 [facility] UTERUS 7 PHYSICIAN REAL TIME S GROUP F/U TRNSABDL PER FETUS COLLECTIO 32163 [facility] N VENOUS 7 [facility]OS[facility] BLOOD INC INC VENIPUNCT URE OPHTH 30568 [facility] 7 XM&EVAL COMPRE NEW PT 1/> VST URINE 87002 [facility] 6 PHYSICIAN TEST S GROUP VISUAL COLOR CMPRSN METHS URINLS 45033 [facility] DIP 6 PHYSICIAN STICK/TAB S GROUP LET REAGNT NON-AUTO MICRSCPY IADNA 74484 [facility] HERPES 6 PHYSICIAN SIMPLX S GROUP VIRUS DIRECT PROBE TQ IADNA 33394 [facility] NEISSERIA 6 PHYSICIAN S GROUP GONORRHOE AE DIRECT PROBE TQ CULTURE 34779 [facility] CHLAMYDIA 6 PHYSICIAN ANY S GROUP SOURCE IAADIADOO 43171 [facility] 6 PHYSICIAN PRODUCTS [facility] [address] [facility] SURG 6 LLC KAYLA PATHOLOGY GROSS&DORY ROSCOPIC EXAM INJECTION J2405 [facility] ONDANSETR INC INC ON HCL PER 1 MG UNCLASSIF J3490 [facility] IED DRUGS 6 [facility] INC INC COLLECTIO 76648 [facility] N VENOUS 6 [facility] BLOOD INC INC VENIPUNCT URE ANESTHESI 82720 [facility] INDUCED 6 ANESTH SHE OF THE BLUE BLOOD 89134 [facility] COUNT 6 [facility] [place] [address] [facility] INCOMPLET 6 [facility] H[facility] E INC INC ANY TRIMESTER SURGICAL BLOOD 99811 [facility] COUNT 6 [facility] HEMOGLOBI INC INC N BLOOD 47727 [facility] COUNT 6 [facility] COMPLETE INC INC AUTO&AUTO DIFRNTL WBC URNLS DIP 47543 [facility] 6 [facility] STICK/TAB INC INC LET REAGENT AUTO MICROSCOP Y CULTURE 91502 [facility] BACTERIAL 6 [facility] INC INC QUANTTATI VE COLONY COUNT URINE COLLECTIO 72972 [facility] N VENOUS 6 [facility] BLOOD INC INC VENIPUNCT URE ANTIBODY 26801 [facility] SCREEN 6 [facility] RBC EACH INC INC SERUM TECHNIQUE BLOOD 38970 [facility] TYPING 6 [facility] SEROLOGIC INC INC ABO GONADOTRO 05501 [facility] PIN 6 [facility] CHORIONIC INC INC QUANTITAT FLAKITA BLOOD 47150 [facility] TYPING 6 [facility] SEROLOGIC INC INC RH (D) IADNA 40052 [facility] CHLAMYDIA 6 REFERNCE REFERNCE LABORATOR LABORATOR TRACHOMAT IES IES IS AMPLIFIED PROBE TQ IADNA 46369 SARAH JARRELL HERPES 6 WESLY DOE SIMPLX VIRUS DIRECT PROBE TQ URINE 72755 SARAH JARRELL 6 WESLY DOE TEST VISUAL COLOR CMPRSN METHS IADNA 27105 [facility] TRICHOMON 6 REFERNCE REFERNCE LABORATOR LABORATOR VAGINALIS IES IES AMPLIFIED PROBE TECH URINLS 48581 SARAH JARRELL DIP 6 WESLY [place] STICK/TAB LET REAGNT NON-AUTO MICRSCPY DRUG TST G0477 [facility] PRESUMP;C 6 [facility] PBL BEING INC INC READ DC OPT OBV ONLY CULTURE 71251 SARAH JARRELL CHLAMYDIA 6 WESLY RAIN[place] ANY SOURCE IAADIADOO 38353 SARAH SMITH R Luis JARRELL MD TRICHOMON VAGINALIS IADNA 43375 [facility] GARDNEREL 6 REFERNCE REFERNCE LA LABORATOR LABORATOR VAGINALIS IES IES AMPLIFIED PROBE TQ CYTP C/V 13648 [facility] AUTO THIN 6 REFERNCE REFERNCE LYR LABORATOR LABORATOR PREPJ SCR IES IES MNL RESCR PHYS IADNA 10222 [facility]IO HERPES 6 REFERNCE REFERNCE SOMPLX LABORATOR LABORATOR VIRUS IES IES AMPLIFIED PROBE TQ IADNA 70095 SARAH JARRELL NEISSERIA 6 WESLY [place] GONORRHOE AE DIRECT PROBE TQ IADNA 87651 [facility] NEISSERIA 6 REFERNCE REFERNCE LABORATOR LABORATOR GONORRHOE IES IES AE AMPLIFIED PROBE TQ IADNA NOS 71463 BIO BIO 6 REFERNCE REFERNCE AMPLIFIED LABORATOR LABORATOR PROBE TQ IES IES EACH ORGANISM COMPREHEN 32261 [facility] SIVE 6 [facility] METABOLIC INC INC PANEL GONADOTRO 67779 [facility] PIN 6 [facility] CHORIONIC INC INC QUANTITAT FLAKITA URINE 07449 [facility] TEST INC INC VISUAL COLOR CMPRSN METHS URNLS DIP 81446 [facility] 6 [facility] STICK/TAB INC INC LET REAGENT AUTO MICROSCOP Y BLOOD 30590 [facility] COUNT 6 [facility] COMPLETE INC INC AUTO&AUTO DIFRNTL WBC GONADOTRO 34990 [facility] PIN 6 [facility] [place] [address] [facility] INFUSION 6 [facility] THERAPY/P INC INC ROPHYLAXI S /DX 1ST TO 1 HR THERAPEUT 88990 [facility] IC 6 [facility] INJECTION INC INC IV PUSH EACH NEW DRUG UNCLASSIF J3490 [facility] IED DRUGS 6 [facility] INC INC INJECTION J2270 GISELE JAQUEZ MORPHINE [address] [place] [address] UP TO 10 MG THERAPEUT 77838 GISELE JAQUEZ IC [address] [place] [address] TIC/DX INJECTION SUBQ/IM URINE 69705 [place] [facility] 6 [facility]IMARY [facility] VISUAL CARE COLOR CMPRSN METHS URINALYSI 06760 [facility] VELOUDIS S 6 PRIMARY [facility] IA SCR CARE XCPT CULTURE/D IPSTICK [place] MISSED 20087 [facility] [address] [place] [address] SECOND TRIMESTER SURGICAL INJECTION J[address] DEXAMETHO SONE SODIUM PHOSPHATE 1 MG INJECTION J2001 [address] LIDOCAINE HCL INTRAVENO US INFUS 10 MG INJECTION J2590 [facility] OXYTOCIN [address] [place] [address] UP TO 10 UNITS RINGERS J7120 [facility] LACTATE [address] [place] [address] INFUSION UP TO 1000 CC INJECTION J1885 [address] KETOROLAC TROMETHAM INE PER 15 MG INJECTION J3010 [facility] FENTANYL [address] [place] [address] CITRATE 0.1 MG ANESTHESI 44440 [facility] [place] A 6 ANESTHESI INCOMPLET A PSC E/MISSED INJECTION J[address] CEFAZOLIN SODIUM [address] [place] [address] [facility] SURG [address] [place] [address] PATHOLOGY GROSS&DORY ROSCOPIC EXAM INJECTION J24[address] ONDANSETR ON HCL PER 1 MG URINALYSI 39629 KENT[facility]INABY VELOUDIS S 6 PRIMARY [facility] IA SCR CARE XCPT CULTURE/D IPSTICK URINE 86444 [place] [facility] 6 PRIMARY [facility] TEST HEALTH VISUAL CARE COLOR CMPRSN METHS URINE 21153 [facility] 6 PRIMARY JR [facility] TEST HEALTH VISUAL CARE COLOR CMPRSN METHS URINALYSI 02750 [facility] S [address] [facility] IA SCR CARE XCPT CULTURE/D IPSTICK US PREG 30389 [facility] VELOUDIS UTERUS [address] [facility] REAL TIME HEALTH W/[place] [address] [facility] VELOUDIS [address] [facility] UTERUS 14 HEALTH [place] [address] [address] THYROID 6 GROUP GROUP STIMULATI LABS [facility] NG HORMONE TSH OBSTETRIC [address]32 [address] PANEL 6 GROUP GROUP [facility] LLC LABS LLC GONADOTRO 71481 [address] PIN 6 GROUP GROUP CHORIONIC LABS [facility] QUANTITAT FLAKITA DRUG TEST G0480 PATH PATH DEFINITV [address] ID LAB[facility] METH P DAY 1-7 DRUG CL CFTR GENE [address] ANALYSIS 6 D COMMON PATHOLOGI VARIANTS STS LLC ANTIBODY 03477 PATH PATH VARICELLA 6 GROUP GROUP -[facility]OSTER [facility] LABS LLC HEPATITIS 21054 [facility] C 6 GROUP GROUP ANTIBODY LABS [facility] DRUG TEST G0479 PATH PATH 6 GROUP GROUP PRESUMP;I LABS [facility] NSTRUMENT ED CHEMISTRY ANLYZER OPHTH 36070 [facility] 1 VISION XM&EVAL COMPRE NEW PT 1/> VST ECG 02091 [facility] ROUTINE 0 ANASTACIO D ECG CARDIOLOG W/LEAST Y CLINIC 12 LDS I&R ONLY THERAPEUT 83480 [facility] 9 [facility] TIC/DX INJECTION SUBQ/IM IAADIADOO [address] WOUND G0168 [facility]NS CLOS[facility] 8 [facility] TISSUE ADHESIVE ONLY Encounters Encounter Start End Date Code Location Performer Type Date OFFICE 66932 [facility] 7 7 PHYSICIAN T VISIT S GROUP 15 MINUTES OFFICE 42422 [facility] 7 7 PHYSICIAN T VISIT S GROUP 15 MINUTES OFFICE 54481 [facility] OUT[facility] 7 7 PHYSICIAN T VISIT S GROUP 15 MINUTES OFFICE 93901 [facility] 7 7 PHYSICIAN T VISIT S GROUP 15 MINUTES OFFICE 72659 [facility] 7 7 PHYSICIAN T VISIT S GROUP 15 MINUTES [facility] 7 7 [facility] INC T OFFICE 15074 [facility] 7 7 PHYSICIAN T VISIT S GROUP 15 MINUTES OFFICE 49308 [facility] 7 7 PHYSICIAN T VISIT S GROUP [address] [facility] 41099 [facility] PREVENTIV 6 6 PHYSICIAN E MED EST S GROUP PATIENT 18-39 YRS HOSPITAL [facility] 6 6 [facility]PATIEN [facility] - 6 6 [facility]PATIEN [facility] - 6 6 [facility] OUTPATIEN [facility] - 6 6 [facility] OUTPATIEN INC T INITIAL 95800 SARAH JARRELL PREVENTIV 6 6 WESLY [place] MEDICINE NEW PT AGE 18-39YRS EMERGENCY 42122 KATHY BONILLA [address] [facility] DEPARTMEN S, [facility] T VISIT HIGH/URGE NT SEVERITY [facility]OSPITAL [facility] 6 6 [facility] OUTPATIEN INC T EMERGENCY 66937 [facility] 6 6 [facility] DEPARTMEN INC T VISIT MODERATE SEVERITY [facility] 6 6 [facility] T EMERGENCY 17220 [facility] 6 6 [facility] EMERGENCY T VISIT PHYS MODERATE SEVERITY EMERGENCY 76224 [facility] 6 6 [facility] HOSPITAL T VISIT LOW/MODER SEVERITY HOSPITAL [facility] - 6 6 [facility] T OFFICE 61541 [facility] 6 6 [facility]IMARY T VISIT HEALTH 15 CARE MINUTES OFFICE 30069 [facility] 6 6 PRIMARY JR [facility] JAVIER T NEW 60 HEALTH MINUTES CARE OFFICE 60324 [facility] 6 6 [facility] NEW 30 INTERNAL MINUTES MED EMERGENCY 31234 [facility] 9 9 [facility] EMERGENCY T VISIT PHYS INC MODERATE SEVERITY HOSPITAL [facility] - 9 9 [facility] T EMERGENCY 88760 [facility] 9 9 [facility] T VISIT LOW/MODER SEVERITY HOSPITAL KATY Diallo 8 8 [facility] T EMERGENCY 88638 KATY 8 8 [facility] T VISIT LOW/MODER SEVERITY EMERGENCY 95672 KATY Bustillos 8 [facility] T VISIT LIMITED/M INOR PROB
--- OUTSIDE RECORDS SUMMARY | 2017-06-28 14:47 | External Medical Summary Rpt ---
Demographics Preferred Language Maldivian Marital Status Unknown Mu-Ism Affiliation Unknown Race Unknown Ethnic Group Unknown Author Author , ALISSA MAXWELL Address Unknown Phone Immunization Unable to retrieve immunization data due to connection failure with Immunization Registry. Please try again later.
--- OUTSIDE RECORDS SUMMARY | 2017-06-28 14:47 | External Medical Summary Rpt ---
Author Author , ALISSA MAXWELL Address Unknown Phone [email or web address] Care Team Providers Care Steel Pickler Name Role Phone MCGEE HOL, MCGEE Unavailable Unavailable [facility] Unavailable Unavailable [facility]ATOR[facility], [facility] Unavailable Unavailable [facility]ATOR[facility], [facility] Unavailable Unavailable DEPARTMENT, [facility] DEPARTMENT [facility] Un[facility], TOMASZ TER Unavailable Unavailable [facility] Unavailable Unavailable [id number], Unavailable Unavailable [facility], Unavailable Unavailable [...] Unavailable SERRANO MANUEL, SERRANO MANUEL Unavailable Unavailable [facility], Unavailable Unavailable [facility] Unavailable Unavailable HEALTH CARE, [facility] Unavailable Unavailable INTERNAL MED, [facility] INTER[facility] MED FERREIRA KAYLA, FERREIRA Unavailable Unavailable KAY[facility] Unavailable Unavailable [facility], [facility], Unavailable Unavailable [facility] Unavailable [...] TAWANA SHE, Unavailable Unavailable TAWANA SHE [facility] Unavailable Unavailable [facility] Unavailable Unavailable CLINIC, [facility] CEASAR MCINTYRE, Unavailable Unavailable CEASAR MCINTYRE [place] [facility], Unavailable Unavailable [place] [facility] Purpose Continuity of Care Document - 02-22-2008 through 2016 Problems Code Diagnosis DOS Provider Status Z131 ENCOUNTER 05-28-2017 [facility] SCREENING GROUP FOR DIABETES MELLITUS Z3480 ENC 05-28-2017 [facility] SUPERVISION PHYSICIANS OT NORMAL GROUP PREG UNS TRIMESTER N760 ACUTE 04-16-2017 [facility] VAGINITIS PHYSICIANS GROUP Z3483 ENC 04-16-2017 [facility] SUPER[facility]ION PHYSICIANS OTH NORMAL GROUP 3 TRIMESTER Z3492 ENC 03-26-2017 [facility] SUPERVISION PHYSICIANS NORMAL GROUP UNS 2 TRIMESTER Z36 ENCOUNTER 02-18-2017 [facility] SCREENING OF MOTHER H5203 HYPERMETROP 12-17-2016 SERRANO IA BILATERAL N925 OTHER 11-26-2016 [facility] SPECIFIED PHYSICIANS IRREGULAR GROUP MENSTRUATIO N P94054 ENCOUNTER 11-26-2016 [facility] FRAME FEEDER EXAM PHYSICIANS GENERAL RTN GROUP W/O ABNORMAL FIND O021 MISSED 04-07-2016 [facility] O034 INCOMPLETE 04-07-2016 [facility] W/O COMPLICATIO N A021 SALMONELLA 04-06-2016 [facility] V76164 ENCOUNTER 04-06-2016 [facility] PREPROCEDUR INC AL LABORATORY EXAM O200 THREATENED 04-05-2016 [facility] C70814 ENCOUNTER 04-02-2016 SARAH Leonardo FRAME FEEDER EXAM WESLY RAINES GENERAL RTN W/ABNORMAL FIND Z048 ENCOUNTER 04-02-2016 [facility]ATORIE OTHER SPEC S REASONS H10960 MIGRAINE 04-01-2016 KATHY UNS NOT PHYSICIANS, INTRACT W/O PLLC STATUS MIGRAINOSUS O2691 04-01-2016 KATHY RELATED PHYSICIANS, CONDITIONS PLLC UNS 1ST TRIMESTER Z3A01 LESS THAN 8 04-01-2016 [facility] GESTATION INC OF R51 HEADACHE 03-31-2016 [facility] PHYS O039 COMPLETE OR 01-09-2016 [facility] P[facility] W/O COMPLICATIO N N912 AMENORRHEA 01-02-2016 [facility] Z3201 ENCOUNTER 01-02-2016 [place] [facility] TEST RESULT POSITIVE Z3481 ENC 12-19-2015 [facility] OTH NORMAL 1 TRIMESTER B86 SCABIES 12-17-2015 [facility] INTERNAL MED 3670 HYPERMETROP 01-08-2011 [facility] V0481 NEED 12-10-2010 [facility] &INOCULATIO N FLU V5883 ENCOUNTER 08-25-2010 [facility] CARDIOLOGY THERAPEUTIC CLINIC DRUG MONITORING 33833 FEVER 08-01-2009 [facility]PEC[facility] N EMERGENCY PHYS INC 4659 ACUTE URIS 07-27-2009 [facility] UNSPECIFIED HOSPITAL SITE 3804 IMPACTED 05-17-2008 [facility] Medications Na ND Rx Da Fi Fi Am Da Di Ph RX Ph St me C No te ll ll ou ys ag ar # ys at rm s nt no ma ic us Or Da si cy ia de te s n re d OK 17 01 03 30 30 00 SO [...] Procedures Procedure DOS Code Location Performer Comment [facility] PRIM 52061 [facility] SRC WET 7 PHYSICIAN [place] GROUP NFCT AGT US PREG 88880 [facility] UTERUS 7 PHYSICIAN REAL TIME S GROUP F/U TRNSABDL PER FETUS COLLECTIO 19175 [facility] N VENOUS 7 [facility] HOSP BLOOD INC INC VENIPUNCT URE OPHTH 60881 [facility] 7 XM&EVAL COMPRE NEW PT 1/> VST URINE 87163 [facility] 6 PHYSICIAN TEST S GROUP VISUAL COLOR CMPRSN METHS URINLS 51712 [facility] DIP 6 PHYSICIAN STICK/TAB S GROUP LET REAGNT NON-AUTO MICRSCPY IADNA 93200 [facility] HERPES 6 PHYSICIAN SIMPLX S GROUP VIRUS DIRECT PROBE TQ IADNA 50384 [facility] NEISSERIA 6 PHYSICIAN S GROUP GONORRHOE AE DIRECT PROBE TQ CULTURE 60058 [facility] CHLAMYDIA 6 PHYSICIAN ANY S GROUP SOURCE IAADIADOO 43701 [facility] PEDIATRIC 6 PHYSICIAN PRODUCTS TRICHOMON [place] [address] [facility] F[facility]RE[facility]A SURG 6 LLC KAYLA PATHOLOGY GROSS&DORY ROSCOPIC EXAM INJECTION J2405 [facility] ONDANSETR INC INC ON HCL PER 1 MG UNCLASSIF J3490 [facility] IED DRUGS 6 [facility] INC INC COLLECTIO 85424 [facility] N VENOUS 6 [facility] BLOOD INC INC VENIPUNCT URE ANESTHESI 88393 [facility] INDUCED 6 ANESTH SHE OF THE BLUE BLOOD 66197 [facility] COUNT 6 [facility] [place] [address] [facility] INCOMPLET 6 [facility] E INC INC ANY TRIMESTER SURGICAL BLOOD 25558 [facility] COUNT 6 [facility] HEMOGLOBI INC INC N BLOOD 20830 [facility] COUNT 6 [facility] COMPLETE INC INC AUTO&AUTO DIFRNTL WBC URNLS DIP 12634 [facility] 6 [facility] STICK/TAB INC INC LET REAGENT AUTO MICROSCOP Y CULTURE 46127 [facility] BACTERIAL 6 [facility] INC INC QUANTTATI VE COLONY COUNT URINE COLLECTIO 47847 [facility] N VENOUS 6 [facility] BLOOD INC INC VENIPUNCT URE ANTIBODY 55624 [facility] SCREEN 6 [facility] RBC EACH INC INC SERUM TECHNIQUE BLOOD 20299 [facility] TYPING 6 [facility] SEROLOGIC INC INC ABO GONADOTRO 86374 [facility] PIN 6 [facility] CHORIONIC INC INC QUANTITAT FLAKITA BLOOD 72198 [facility] TYPING 6 [facility] SEROLOGIC INC INC RH (D) IADNA 32829 BIO BIO CHLAMYDIA 6 REFERNCE REFERNCE LABORATOR LABORATOR TRACHOMAT IES IES IS AMPLIFIED PROBE TQ IADNA 41731 SARAH JARRELL HERPES 6 WESLY DOE SIMPLX VIRUS DIRECT PROBE TQ URINE 10721 SARAH JARRELL 6 WESLY DOE TEST VISUAL COLOR CMPRSN METHS IADNA 91057 BIO BIO TRICHOMON 6 REFERNCE REFERNCE LABORATOR LABORATOR VAGINALIS IES IES AMPLIFIED PROBE TECH URINLS 27259 SARAH JARRELL DIP 6 [facility]ES[facility] [place] STICK/TAB LET REAGNT NON-AUTO MICRSCPY DRUG TST G0477 [facility] PRESUMP;C 6 [facility] PBL BEING INC INC READ DC OPT OBV ONLY CULTURE 63733 SARAH JARRELL CHLAMYDIA 6 WESLY [place] ANY SOURCE IAADIADOO 31178 SARAH SMITH R Luis JARRELL MD TRICHOMON VAGINALIS IADNA 06524 BIO BIO GARDNEREL 6 REFERNCE REFERNCE LA LABORATOR LABORATOR VAGINALIS IES IES AMPLIFIED PROBE TQ CYTP C/V 90010 BIO BIO AUTO THIN 6 REFERNCE REFERNCE LYR LABORATOR LABORATOR PREPJ SCR IES IES MNL RESCR PHYS IADNA 41695 BIO BIO HERPES 6 REFERNCE REFERNCE SOMPLX LABORATOR LABORATOR VIRUS IES IES AMPLIFIED PROBE TQ IADNA 90214 SARAH JARRELL NEISSERIA 6 WESLY [place] GONORRHOE AE DIRECT PROBE TQ IADNA 82291 BIO BIO NEISSERIA 6 REFERNCE REFERNCE LABORATOR LABORATOR GONORRHOE IES IES AE AMPLIFIED PROBE TQ IADNA NOS 20921 BIO BIO 6 REFERNCE REFERNCE AMPLIFIED LABORATOR LABORATOR PROBE TQ IES IES EACH ORGANISM COMPREHEN 01901 [facility] SIVE 6 [facility] METABOLIC INC INC PANEL GONADOTRO 00735 [facility] PIN 6 [facility] CHORIONIC INC INC QUANTITAT FLAKITA URINE 84749 [facility] 6 [facility] TEST INC INC VISUAL COLOR CMPRSN METHS URNLS DIP 28028 [facility] 6 [facility] STICK/TAB INC INC LET REAGENT AUTO MICROSCOP Y BLOOD 29613 [facility] COUNT 6 [facility] COMPLETE INC INC AUTO&AUTO DIFRNTL WBC GONADOTRO 57575 [facility] PIN 6 [facility] [place] [address] [facility] INFUSION 6 [facility] THERAPY/P INC INC ROPHYLAXI S /DX 1ST TO 1 HR THERAPEUT 21104 [facility] IC 6 [facility] INJECTION INC INC IV PUSH EACH NEW DRUG UNCLASSIF J3490 [facility] IED DRUGS 6 [facility] INC INC INJECTION J2270 GISELE JAQUEZ MORPHINE [address] [place] [address] UP TO 10 MG THERAPEUT 46245 GISELE JAQUEZ IC [address] [place] [address] TIC/DX INJECTION SUBQ/IM URINE 80555 [place] [facility] 6 [facility] VISUAL CARE COLOR CMPRSN METHS URINALYSI 82347 [place] [facility] S 6 [facility] IA SCR CARE XCPT CULTURE/D IPSTICK [place] MISSED 13510 [facility] [address] [place] [address] SECOND TRIMESTER SURGICAL INJECTION J[address] DEXAMETHO SONE SODIUM PHOSPHATE 1 MG INJECTION J2001 [address] LIDOCAINE HCL INTRAVENO US INFUS 10 MG INJECTION J2590 [facility] OXYTOCIN [address] [place] [address] UP TO 10 UNITS RINGERS J7120 [facility] LACTATE [address] [place] [address] INFUSION UP TO 1000 CC INJECTION J1885 [address] KETOROLAC TROMETHAM INE PER 15 MG INJECTION J3010 [facility] FENTANYL [address] [place] [address] CITRATE 0.1 MG ANESTHESI 65122 [facility] [place] [place] A 6 ANESTHESI INCOMPLET A PSC E/MISSED INJECTION J[address] CEFAZOLIN SODIUM [address] [place] [address] [facility] SURG [address] [place] [address] PATHOLOGY GROSS&DORY ROSCOPIC EXAM INJECTION J24[address] ONDANSETR ON HCL PER 1 MG URINALYSI 48860 [facility] V[facility] S 6 [facility] IA SCR CARE XCPT CULTURE/D IPSTICK URINE 13169 [place] 6 PRIMARY JR [facility] TEST HEALTH VISUAL CARE COLOR CMPRSN METHS URINE 47633 [facility] VEL[facility] 6 PRIMARY JR [facility] JAVIER TEST HEALTH VISUAL CARE COLOR CMPRSN METHS URINALYSI 89350 [facility]ER VELOUDIS S 6 PRIMARY [facility] BACTERIUR HEALTH IA SCR CARE XCPT CULTURE/D IPSTICK US PREG 47202 R[facility]INDER VELOUDIS UTERUS 6 PRIMARY [facility] REAL TIME HEALTH W/[place] [address] RAVINDER VELOUDIS 6 PRIMARY [facility] UTERUS 14 HEALTH [place] [address] [address] THYROID 6 GROUP GROUP STIMULATI LABS Actions LABS Actions NG HORMONE TSH OBSTETRIC 52960 [address] [facility] PANEL 6 GROUP GROUP LABS LLC LABS LLC GONADOTRO 9[address]92 [address] [facility] PIN 6 GROUP GROUP CHORIONIC LABS Actions LABS Actions QUANTITAT FLAKITA DRUG TEST G0480 PATH PATH DEFINITV [address] ID LABS Actions LABS LLC METH P DAY 1-7 DRUG CL CFTR GENE [address] ANALYSIS 6 D COMMON PATHOLOGI VARIANTS STS LLC ANTIBODY 39383 [address] PATH VARICELLA 6 GROUP GROUP -ZOSTER [facility] LABS LLC HEPATITIS 28408 [address] C 6 GROUP GROUP ANTIBODY LABS Actions [facility] DRUG TEST G0479 PATH PATH 6 GROUP GROUP PRESUMP;I LABS Actions LABS Actions NSTRUMENT ED CHEMISTRY ANLYZER OPHTH 94871 [facility] 1 VISION XM&EVAL COMPRE NEW PT 1/> VST ECG 04766 [facility] ROUTINE 0 ANASTACIO D ECG CARDIOLOG W/LEAST Y CLINIC 12 LDS I&R ONLY THERAPEUT 35145 [facility] 9 [facility] TIC/DX INJECTION SUBQ/IM IAADIADOO [address] WOUND G0168 [facility] CLOS[facility] 8 [facility] TISSUE ADHESIVE ONLY Encounters Encounter Start End Date Code Location Performer Type Date OFFICE 12275 [facility] OUTPATIEN 7 7 PHYSICIAN T VISIT S GROUP 15 MINUTES OFFICE 29473 [facility] OUTPATIEN 7 7 PHYSICIAN T VISIT S GROUP 15 MINUTES OFFICE 87405 [facility] OUTPATIEN 7 7 PHYSICIAN T VISIT S GROUP 15 MINUTES OFFICE 49652 [facility] OUTPATIEN 7 7 PHYSICIAN T VISIT S GROUP 15 MINUTES OFFICE 09577 [facility] OUTPATIEN 7 7 PHYSICIAN T VISIT S GROUP 15 MINUTES [facility]OSP[facility] - 7 7 [facility] OUTPATIEN INC T OFFICE 28477 [facility] OUTPATIEN 7 7 PHYSICIAN T VISIT S GROUP 15 MINUTES OFFICE 92502 [facility] OUTPATIEN 7 7 PHYSICIAN T VISIT S GROUP 15 MINUTES FORMERLY [facility] 42386 [facility] PREVENTIV 6 6 PHYSICIAN E MED EST S GROUP PATIENT 18-39 YRS HOSPITAL [facility] - 6 6 [facility] OUTPATIEN [facility] - 6 6 [facility] OUTPATIEN [facility] - 6 6 [facility]PATIEN [facility] - 6 6 [facility] OUTPATIEN INC T INITIAL 73359 SARAH JARRELL PREVENTIV 6 6 WES[facility] [place] MEDICINE NEW PT AGE 18-39YRS EMERGENCY 22721 KATHY BONILLA 6 6 PHYSICIAN [facility] DEPARTMEN S, [facility] T VISIT HIGH/URGE NT SEVERITY [facility]OSPITAL [facility] - 6 6 [facility] OUTPATIEN INC T EMERGENCY 25475 [facility] 6 6 [facility] DEPARTMEN INC T VISIT MODERATE SEVERITY [facility] [place] [facility] 6 6 [facility] T EMERGENCY 68312 [facility] 6 6 [facility] EMERGENCY T VISIT PHYS MODERATE SEVERITY EMERGENCY 91027 [place] 6 6 [facility] T VISIT LOW/MODER SEVERITY HOSPITAL [facility] - 6 6 [facility] T OFFICE 19566 [facility] 6 6 [facility] T VISIT HEALTH 15 CARE MINUTES OFFICE 42402 [facility] 6 6 PRIMARY JR FRANC[facility] JAVIER T NEW 60 HEALTH MINUTES CARE OFFICE 12661 [facility] EMERGENCY DEPARTMENT 6 6 [facility] NEW 30 INTERNAL MINUTES MED EMERGENCY 70073 [facility] 9 9 [facility] EMERGENCY T VISIT PHYS INC MODERATE SEVERITY HOSPITAL [place] - 9 9 [facility] T EMERGENCY 66876 [place] 9 9 [facility] T VISIT LOW/MODER SEVERITY HOSPITAL [facility] 62097 K[facility] 8 8 [facility] T VISIT LOW/MODER SEVERITY EMERGENCY 03788 KATY Bustillos 8 [facility] T VISIT LIMITED/M INOR PROB
--- OUTSIDE RECORDS SUMMARY | 2017-06-28 14:48 | External Medical Summary Rpt ---
Author Author ALISSA Larios, [employer] Address Unknown Phone Unavailable Results Fibrin D-dimer FEU [Mass/volume] in Platelet poor plasma Observa Value Referen Units Interpr Notes Date tion ce etation Range Fibrin 0 - 400 ng/mL High Jun 28 D-dimer alert NOTIFICAT 2017 9:25 FEU ION AM [Mass/vol RESULT ume] in [place] Platelet neThe poor D-Dimer plasma values are presented in units of mass(ng/m L) ofD-Dimer units(DDU ).This test has been FDA approved as an aid in the assessmen tand evaluatio n of suspected DIC, and thromboem bolic eventsinc luding PE and DVT. However, it does not have approvalf or cut-off values for the exclusion of these condition s. Fibrinogen [Mass/volume] in Platelet poor plasma by Coagulation assay Observa Value Referen Units Interpr Notes Date tion ce etation Range Fibrinoge 204.2 - mg/dL Normal No Jun 28 n 499.8 informati 2016 9:25 [Mass/vol on in AM ume] in source Platelet data poor plasma by Coagulati on assay PT & aPTT panel in Platelet poor plasma by Coagulation assay Observa Value Referen Units Interpr Notes Date tion ce etation Range INR in 0.9 - 1.1 No Normal INDICATIO Jun 28 Blood by informati N 2016 9:25 Coagulati on in AM on assay source INR data RANGETHER APY FOR DVT, PE, ATRIAL FIB; 2.0 - 3.0PROPHY LAXIS FOR VTETHERAP Y FOR MECHANICA L HEART 2.5 - 3.5VALVE; PREVENTIO N OF SYSTEMICE MBOLISM SECONDARY TO AMI Prothromb 9.4 - SECONDS Normal No Jun 28 in time 11.8 informati 2016 9:25 (PT) in on in AM Platelet source poor data plasma by Coagulati on assay Activated 23.6 - SECONDS Normal No Jun 28 partial 34.0 informati 2016 9:25 thrombpla on in AM stin time source (aPTT) data in Platelet poor plasma by Coagulati on assay Basic metabolic panel in Blood Observa Value Referen Units Interpr Notes Date tion ce etation Range Urea 7 - 18 mg/dL Low No Jun 28 nitrogen informati 2016 9:25 [Mass/vol on in AM ume] in source Serum or data Plasma Calcium 8.5 - mg/dL Normal No Jun 28 [Mass/vol 10.1 informati 2016 9:25 ume] in on in AM Serum or source Plasma data Chloride 98 - 107 mmoL/L Normal No Jun 28 [Moles/vo informati 2017 9:25 lume] in on in AM Serum or source Plasma data Carbon 21.0 - mmoL/L Normal No Jun 28 dioxide, 32.0 informati 2017 9:25 total on in AM [Moles/vo source lume] in data Serum or Plasma Creatinin 0.55 - mg/dL Normal No Jun 28 e 1.02 informati 2017 9:25 [Mass/vol on in AM ume] in source Serum or data Plasma Estimated 59- ML/MIN No REFERENCE Jun 28 informati RANGE: 2017 9:25 glomerula on in >60 AM r source ML/MIN/1. filtratio data 73 SQUARE n rate METERSIf (GF this patient is -A merican, then multiply theresult by 1.210. Glucose 74 - 106 mg/dL High No Jun 28 [Mass/vol informati 2016 9:25 ume] in on in AM Serum or source Plasma data Potassium 3.5 - 5.1 mmoL/L Normal No Jun 28 informati 2016 9:25 [Moles/vo on in AM lume] in source Serum or data Plasma Sodium 136 - 145 mmoL/L Low No Jun 28 [Moles/vo informati 2017 9:25 lume] in on in AM Serum or source Plasma data Hepatic function 2000 panel in Serum or Plasma Observa Value Referen Units Interpr Notes Date tion ce etation Range Albumin 3.4 - 5.0 gm/dL Low No Jun 28 [Mass/vol informati 2016 9:25 ume] in on in AM Serum or source Plasma data Alkaline 46 - 116 U/L High No Jun 28 phosphata informati 2016 9:25 se on in AM [Enzymati source c data activity/ volume] in Serum or Plasma Bilirubin 0.0 - 0.2 mg/dL Normal No Jun 28 .direct informati 2017 9:25 [Mass/vol on in AM ume] in source Serum or data Plasma Bilirubin 0 - 0.9 mg/dL Normal No Jun 28 .indirect informati 2017 9:25 on in AM [Mass/vol source ume] in data Serum or Plasma Bilirubin 0.2 - 1.0 mg/dL Normal No Jun 28 .total informati 2017 9:25 [Mass/vol on in AM ume] in source Serum or data Plasma Aspartate 15 - 37 U/L Normal No Jun 28 informati 2017 9:25 aminotran on in AM sferase source [Enzymati data c activity/ volume] in Serum or Plasma Alanine 12 - 78 U/L Normal No Jun 28 aminotran informati 2016 9:25 sferase on in AM [Enzymati source c data activity/ volume] in Serum or Plasma Protein 6.4 - 8.2 gm/dL Low No Jun 28 [Mass/vol informati 2016 9:25 ume] in on in AM Serum or source Plasma data Urate [Mass/volume] in Serum or Plasma Observa Value Referen Units Interpr Notes Date tion ce etation Range Urate 2.6 - 7.2 mg/dL Normal No Jun 28 [Mass/vol informati 2017 9:25 ume] in on in AM Serum or source Plasma data CBC W Auto Differential panel in Blood Observa Value Referen Units Interpr Notes Date tion ce etation Range Basophils 0 - 0.2 K/MM3 Normal No Jun 28 informati 2016 9:25 [#/volume on in AM ] in source Blood by data Automated count Basophils 0.1 - 2.0 % Normal No Jun 28 informati 2016 9:25 leukocyte on in AM s in source Blood by data Automated count Eosinophi 0.0 - 0.4 K/mm3 Normal No Jun 28 ls informati 2016 9:25 [#/volume on in AM ] in source Blood by data Automated count Eosinophi 0.1 - % Normal No Jun 28 ls/100 12.0 informati 2016 9:25 leukocyte on in AM s in source Blood by data Automated count Granulocy 1.8 - 7.8 K/mm3 Normal No Jun 28 daniel informati 2016 9:25 [#/volume on in AM ] in source Blood by data Automated count Granulocy 37.0 - % Normal No Jun 28 daniel/100 80.0 informati 2017 9:25 leukocyte on in AM s in source Blood by data Automated count Hematocri 37.0 - % Normal No Jun 28 t [Volume 47.0 informati 2017 9:25 on in AM Fraction] source of Blood data Hemoglobi 12.2 - g/dL Normal No Jun 28 n 16.2 informati 2017 9:25 [Mass/vol on in AM ume] in source Blood data Lymphocyt 0.7 - 4.5 K/mm3 Normal No Jun 28 es informati 2017 9:25 [#/volume on in AM ] in source Unspecifi data ed specimen by Automated count Lymphocyt 10 - 50.0 % Normal No Jun 28 es informati 2017 9:25 [#/volume on in AM ] in source Unspecifi data ed specimen by Automated count Erythrocy 27 - 31.2 pg High No Jun 28 te mean informati 2017 9:25 corpuscul on in AM ar source hemoglobi data n [Entitic mass] Erythrocy 31.8 - g/dl Normal No Jun 28 te mean 35.4 informati 2017 9:25 corpuscul on in AM ar source hemoglobi data n concentra tion [Mass/vol ume] by Automated count Erythrocy 82.2 - fl Normal No Jun 28 te mean 97.8 informati 2017 9:25 corpuscul on in AM ar volume source [Entitic data volume] by Automated count Monocytes 0.1 - 1.0 K/mm3 Normal No Jun 28 informati 2017 9:25 [#/volume on in AM ] in source Blood by data Automated count Monocytes 1.7 - 9.3 % Normal No Jun 28 / informati 2017 9:25 leukocyte on in AM s in source Blood by data Automated count Platelet 7.4 - fl Normal No Jun 28 mean 10.4 informati 2017 9:25 volume on in AM [Entitic source volume] data in Blood by Automated count Platelets 142 - 424 K/mm3 Normal No Jun 28 informati 2017 9:25 [#/volume on in AM ] in source Blood data Erythrocy 4.2 - 5.4 M/mm3 Low No Jun 28 daniel informati 2017 9:25 [#/volume on in AM ] in source Amniotic data fluid Erythrocy 11.5 - % Normal No Jun 28 te 17.5 informati 2017 9:25 distribut on in AM ion width source [Entitic data volume] by Automated count Leukocyte 4.8 - K/MM3 No No Jun 28 s 10.8 informati informati 2016 9:25 [#/volume on in on in AM ] in source source Blood data data Fibrin D-dimer FEU [Mass/volume] in Platelet poor plasma Observa Value Referen Units Interpr Notes Date tion ce etation Range Fibrin 0 - 400 ng/mL High Jun 25 D-dimer alert NOTIFICAT 2017 FEU ION 10:40 AM [Mass/vol RESULT ume] in The Platelet D-Dimer poor values plasma are presented in units of mass(ng/m L) ofD-Dimer units(DDU ).This test has been FDA approved as an aid in the assessmen tand evaluatio n of suspected DIC, and thromboem bolic eventsinc luding PE and DVT. However, it does not have approvalf or cut-off values for the exclusion of these condition s. Fibrinogen [Mass/volume] in Platelet poor plasma by Coagulation assay Observa Value Referen Units Interpr Notes Date ti ce etation Range Fibrinoge 204.2 - mg/dL Normal No Jun 25 n 499.8 2016 [Mass/vol on in 10:40 AM ume] in source Platelet data poor plasma by Coagulati on assay PT & aPTT panel in Platelet poor plasma by Coagulation assay Observa Value Referen Units Interpr Notes Date ti ce etation Range INR in 0.9 - 1.1 No Normal INDICATIO Jun 25 Blood by informati N 2017 Coagulati on in 10:40 AM on assay source INR data RANGETHER APY FOR DVT, PE, ATRIAL FIB; 2.0 - 3.0PROPHY LAXIS FOR VTETHERAP Y FOR MECHANICA L HEART 2.5 - 3.5VALVE; PREVENTIO N OF SYSTEMICE MBOLISM SECONDARY TO AMI Prothromb 9.4 - SECONDS Normal No Jun 25 in time 11.8 informati 2016 (PT) in on in 10:40 AM Platelet source poor data plasma by Coagulati on assay Activated 23.6 - SECONDS Normal No Jun 25 partial 34.0 inform2016 thrombpla on in 10:40 AM stin time source (aPTT) data in Platelet poor plasma by Coagulati on assay Basic metabolic panel in Blood Observa Value Referen Units Interpr Notes Date ti ce etation Range Urea 7 - 18 mg/dL Low No Jun 25 nitrogen informati 2016 [Mass/vol on in 10:40 AM ume] in source Serum or data Plasma Calcium 8.5 - mg/dL Low No Jun 25 [Mass/vol 10.1 informati 2016 ume] in on in 10:40 AM Serum or source Plasma data Chloride 98 - 107 mmoL/L Normal No Jun 25 [Moles/vo informati 2016 lume] in on in 10:40 AM Serum or source Plasma data Carbon 21.0 - mmoL/L Normal No Jun 25 dioxide, 32.0 informati 2016 total on in 10:40 AM [Moles/vo source lume] in data Serum or Plasma Creatinin 0.55 - mg/dL Normal No Jun 25 e 1.02 informati 2016 [Mass/vol on in 10:40 AM ume] in source Serum or data Plasma Estimated 59- ML/MIN No REFERENCE Jun 25 informati RANGE: 2017 glomerula on in >60 10:40 AM r source ML/MIN/1. filtratio data 73 SQUARE n rate METERSIf (GF this patient is -A merican, then multiply theresult by 1.210. Glucose 74 - 106 mg/dL High No Jun 25 [Mass/vol informati 2016 ume] in on in 10:40 AM Serum or source Plasma data Potassium 3.5 - 5.1 mmoL/L Normal No Jun 25 inform2016 [Moles/vo on in 10:40 AM lume] in source Serum or data Plasma Sodium 136 - 145 mmoL/L Normal No Jun 25 [Moles/vo informati 2016 lume] in on in 10:40 AM Serum or source Plasma data Hepatic function 2000 panel in Serum or Plasma Observa Value Referen Units Interpr Notes Date tion ce etation Range Albumin 3.4 - 5.0 gm/dL Low No Jun 25 [Mass/vol informati 2016 ume] in on in 10:40 AM Serum or source Plasma data Alkaline 46 - 116 U/L High No Jun 25 phosphata informati 2016 se on in 10:40 AM [Enzymati source c data activity/ volume] in Serum or Plasma Bilirubin 0.0 - 0.2 mg/dL Normal No Jun 25 .direct informati 2016 [Mass/vol on in 10:40 AM ume] in source Serum or data Plasma Bilirubin 0 - 0.9 mg/dL Normal No Jun 25 .indirect informati 2017 on in 10:40 AM [Mass/vol source ume] in data Serum or Plasma Bilirubin 0.2 - 1.0 mg/dL Normal No Jun 25 .total informati 2016 [Mass/vol on in 10:40 AM ume] in source Serum or data Plasma Aspartate 15 - 37 U/L Normal No Jun 252016 aminotran on in 10:40 AM sferase source [Enzymati data c activity/ volume] in Serum or Plasma Alanine 12 - 78 U/L Normal No Jun 25 aminotran 2016 sferase on in 10:40 AM [Enzymati source c data activity/ volume] in Serum or Plasma Protein 6.4 - 8.2 gm/dL Low No Jun 25 [Mass/vol informati 2016 ume] in on in 10:40 AM Serum or source Plasma data Urate [Mass/volume] in Serum or Plasma Observa Value Referen Units Interpr Notes Date tion ce etation Range Urate 2.6 - 7.2 mg/dL Normal No Jun 25 [Mass/vol informati 2016 ume] in on in 10:40 AM Serum or source Plasma data CBC W Auto Differential panel in Blood Observa Value Referen Units Interpr Notes Date tion ce etation Range Basophils 0 - 0.2 K/MM3 Normal No Jun 252016 [#/volume on in 10:40 AM ] in source Blood by data Automated count Basophils 0.1 - 2.0 % Normal No Jun 252016 leukocyte on in 10:40 AM s in source Blood by data Automated count Eosinophi 0.0 - 0.4 K/mm3 Normal No Jun 25 ls ati 2016 [#/volume on in 10:40 AM ] in source Blood by data Automated count Eosinophi 0.1 - % Normal No Jun 25 ls/100 12.0 2016 leukocyte on in 10:40 AM s in source Blood by data Automated count Granulocy 1.8 - 7.8 K/mm3 Normal No Jun 25 daniel 2016 [#/volume on in 10:40 AM ] in source Blood by data Automated count Granulocy 37.0 - % Normal No Jun 25 daniel/100 80.0 2016 leukocyte on in 10:40 AM s in source Blood by data Automated count Hematocri 37.0 - % Low No Jun 25 t [Volume 47.0 informati 2016 on in 10:40 AM Fraction] source of Blood data Hemoglobi 12.2 - g/dL Low No Jun 25 n 16.2 informati 2016 [Mass/vol on in 10:40 AM ume] in source Blood data Lymphocyt 0.7 - 4.5 K/mm3 Normal No Jun 25 es inform2016 [#/volume on in 10:40 AM ] in source Unspecifi data ed specimen by Automated count Lymphocyt 10 - 50.0 % Normal No Jun 25 es informati 2016 [#/volume on in 10:40 AM ] in source Unspecifi data ed specimen by Automated count Erythrocy 27 - 31.2 pg High No Jun 25 te mean inform2016 corpuscul on in 10:40 AM ar source hemoglobi data n [Entitic mass] Erythrocy 31.8 - g/dl Normal No Jun 25 te mean 35.4 2016 corpuscul on in 10:40 AM ar source hemoglobi data n concentra tion [Mass/vol ume] by Automated count Erythrocy 82.2 - fl Normal No Jun 25 te mean 97.8 informati 2016 corpuscul on in 10:40 AM ar volume source [Entitic data volume] by Automated count Monocytes 0.1 - 1.0 K/mm3 Normal No Jun 252016 [#/volume on in 10:40 AM ] in source Blood by data Automated count Monocytes 1.7 - 9.3 % Normal No Jun 25 /100 2016 leukocyte on in 10:40 AM s in source Blood by data Automated count Platelet 7.4 - fl Normal No Jun 25 mean 10.4 inform2016 volume on in 10:40 AM [Entitic source volume] data in Blood by Automated count Platelets 142 - 424 K/mm3 No No Jun 25 informati informati 2016 [#/volume on in on in 10:40 AM ] in source source Blood data data Erythrocy 4.2 - 5.4 M/mm3 Low No Jun 25 daniel informati 2016 [#/volume on in 10:40 AM ] in source Amniotic data fluid Erythrocy 11.5 - % Normal No Jun 25 te 17.5 informati 2016 distribut on in 10:40 AM ion width source [Entitic data volume] by Automated count Leukocyte 4.8 - K/MM3 Low No Jun 25 s 10.8 informati 2016 [#/volume on in 10:40 AM ] in source Blood data Hemoglobin A1c in Blood Observa Value Referen Units Interpr Notes Date tion ce etation Range Hemoglo 5.0 0.0 - % Normal < 6% Jun 11 bin A1c 7.0 NON-PATRICA 2017 in [facility] 10:30 Blood LEVEL< AM 7% CONTROL LED DIABETI C LEVEL> 8% POORLY CONTROL LED DIABETI C LEVEL Glucose [Mass/volume] in Serum or Plasma --3 hours post XXX challenge Observa Value Referen Units Interpr Notes Date ti ce etation Range Glucose No mg/dL No No Jun 09 [Mass/vol informati informati informati 2016 8:44 ume] in on in on in on in AM Serum or source source source Plasma data data data --1 hour post dose glucose Glucose 3+ No mg/ml No No Jun 09 informa informa informa 2016 [Presen tion in tion in tion in 8:44 AM ce] in source source source Urine data data data by Test strip Glucose No mg/dL No No Jun 09 [Mass/vol informati informati informati 2016 8:44 ume] in on in on in on in AM Serum or source source source Plasma data data data --2 hours post 100 g glucose PO Glucose 3+ No mg/ml No No Jun 09 informa informa informa 2016 [Presen tion in tion in tion in 8:44 AM ce] in source source source Urine data data data by Test strip --2 hours post dose glucose Glucose No mg/dL No No Jun 09 [Mass/vol informati informati informati 2016 8:44 ume] in on in on in on in AM Serum or source source source Plasma data data data --3 hours post 100 g glucose PO Glucose 2+ No mg/ml No No Jun 09 informa informa informa 2016 [Presen tion in tion in tion in 8:44 AM ce] in source source source Urine data data data by Test strip --3 hours post dose glucose Glucose 70 - 110 mg/dL High No Jun 09 [Mass/vol informati 2016 8:44 ume] in on in AM Serum or source Plasma data --pre 12 hour fast Glucose NEGATIV No mg/dL No No Jun 09 E informa informa informa 2016 [Presen tion in tion in ti in 8:44 AM ce] in source source source Urine data data data by Automat ed test strip Glucose [Mass/volume] in Serum or Plasma --3 hours post XXX challenge Observa Value Referen Units Interpr Notes Date tion ce etation Range Glucose No mg/dL No No Jun 09 [Mass/vol informati informati informati 2016 8:44 ume] in on in on in on in AM Serum or source source source Plasma data data data --1 hour post dose glucose Glucose 3+ No mg/ml No No Jun 09 informa informa informa 2017 [Presen tion in in in 8:44 AM ce] in source source source Urine data data data by Test strip Glucose No mg/dL No No Jun 09 [Mass/vol informati informati informati 2016 8:44 ume] in on in on in on in AM Serum or source source source Plasma data data data --2 hours post 100 g glucose PO Glucose 3+ No mg/ml No No Jun 09 informa informa informa 2017 [Presen tion in in in 8:44 AM ce] in source source source Urine data data data by Test strip --2 hours post dose glucose Glucose No mg/dL No No Jun 09 [Mass/vol informati informati informati 2016 8:44 ume] in on in on in on in AM Serum or source source source Plasma data data data --3 hours post 100 g glucose PO Glucose 70 - 110 mg/dL High No Jun 09 [Mass/vol informati 2016 8:44 ume] in on in AM Serum or source Plasma data --pre 12 hour fast Glucose NEGATIV No mg/dL No No Jun 09 E informa informa informa 2016 [Presen tion in in ti in 8:44 AM ce] in source source source Urine data data data by Automat ed test strip Glucose [Mass/volume] in Serum or Plasma --3 hours post XXX challenge Observa Value Referen Units Interpr Notes Date tion ce etation Range Glucose No mg/dL No No Jun 09 [Mass/vol informati informati informati 2016 8:44 ume] in on in on in on in AM Serum or source source source Plasma data data data --1 hour post dose glucose Glucose 3+ No mg/ml No No Jun 09 informa informa informa 2017 [Presen tion in tion in tion in 8:44 AM ce] in source source source Urine data data data by Test strip Glucose No mg/dL No No Jun 09 [Mass/vol informati informati informati 2016 8:44 ume] in on in on in on in AM Serum or source source source Plasma data data data --2 hours post 100 g glucose PO Glucose 3+ No mg/ml No No Jun 09 informa informa informa 2016 [Presen tion in tion in tion in 8:44 AM ce] in source source source Urine data data data by Test strip --2 hours post dose glucose Glucose 70 - 110 mg/dL High No Jun 09 [Mass/vol informati 2016 8:44 ume] in on in AM Serum or source Plasma data --pre 12 hour fast Glucose NEGATIV No mg/dL No No Jun 09 E informa informa informa 2016 [Presen tion in tion in tion in 8:44 AM ce] in source source source Urine data data data by Automat ed test strip Glucose [Mass/volume] in Serum or Plasma --3 hours post XXX challenge Observa Value Referen Units Interpr Notes Date ti ce etation Range Glucose No mg/dL No No Jun 09 [Mass/vol informati informati informati 2016 8:44 ume] in on in on in on in AM Serum or source source source Plasma data data data --1 hour post dose glucose Glucose 3+ No mg/ml No No Jun 09 informa informa informa 2016 [Presen tion in tion in tion in 8:44 AM ce] in source source source Urine data data data by Test strip Glucose 70 - 110 mg/dL High No Jun 09 [Mass/vol informati 2016 8:44 ume] in on in AM Serum or source Plasma data --pre 12 hour fast Glucose NEGATIV No mg/dL No No Jun 09 E informa informa informa 2017 [Presen tion in tion in tion in 8:44 AM ce] in source source source Urine data data data by Automat ed test strip Glucose [Mass/volume] in Serum or Plasma --3 hours post XXX challenge Observa Value Referen Units Interpr Notes Date ti ce etation Range Glucose 3+ No mg/ml No No Jun 09 informa informa informa 2016 [Presen tion in tion in tion in 8:44 AM ce] in source source source Urine data data data by Test strip Glucose 70 - 110 mg/dL High No Jun 09 [Mass/vol informati 2016 8:44 ume] in on in AM Serum or source Plasma data --pre 12 hour fast Glucose NEGATIV No mg/dL No No Jun 09 E informa informa informa 2016 [Presen tion in tion in ti in 8:44 AM ce] in source source source Urine data data data by Automat ed test strip Glucose [Presence] in Urine by Test strip --1 hour post 75 g glucose PO Observa Value Referen Units Interpr Notes Date tion ce etation Range Glucose No mg/dL No No May 21 [Mass/vol informati informati informati 2016 9:44 ume] in on in on in on in AM Serum or source source source Plasma data data data --1 hour post dose glucose Glucose TRACE No mg/ml No No May 21 informa informa informa 2016 [Presen tion in tion in ti in 9:44 AM ce] in source source source Urine data data data by Test strip
--- OUTSIDE RECORDS SUMMARY | 2017-06-28 14:48 | External Medical Summary Rpt ---
Author Author ALISSA Larios, [employer] Organization [employer] Address Unknown Phone Unavailable [...] 11 bin A1c 7.0 NON-PATRICA 2017 in [facility] 10:30 Blood LEVEL< AM 7% CONTROL LED [...]
[2017-06-28 14:51] VITALS: BP 133/80
[2017-06-28] MEDS ORDERED: METHADONE 10MG10 MG PO (15:01)
--- NOTE | 2017-06-28 15:11 | ACUTE CARE PROGRESS NOTE (QUA) ---
Progress Notes Subjective Date 06/28/17 Time 1509 Assessment/Plan This inpt stay is expected to cross 2 MNs from start of care Yes (preeclampsia) Comments: This 36-year-old 5, para 1, AB 3 white female is admitted at 37 2/7 weeks with signs and symptoms of preeclampsia. Her d-dimer is have increased over the past few days to over 2400, and her alkaline phosphatase was also increased. Her blood pressures in the 150s over high 80s at this time. Her cervix is 1 cm, 50 percent, with a high presenting vertex and bag of water intact. She is admitted for magnesium sulfate and possible induction. at 1510
[2017-06-28 16:11] LABS: AMPHETAMINES/METAMPHETAMINES NEGATIVE ng/mL (<1000)
[2017-06-28 16:14] LABS: ABO BLOOD TYPE O; RH BLOOD TYPE POSITIVE
[2017-06-28 16:14] LABS: URINE BILIRUBIN - DIPSTICK NEGATIVE (NEG); URINE BLOOD TRACE-INTACT (NEG)
[2017-06-28 20:05] VITALS: BP 144/79
--- NOTE | 2017-06-29 05:50 | ACUTE CARE PROGRESS NOTE (QUA) ---
Progress Notes Subjective Date 06/29/17 Time 0547 Note This is hospital day number 2. She is afebrile. Vital signs are stable, except that her blood pressure is up at 165/87. Her DTRs are somewhat brisk. She is on 2 g of magnesium sulfate, and I will be increased to 3 g an hour at this time. Her cervix is 90 percent, 2 cm, with the presenting vertex at -2 station. Intravenous Pitocin has been begun. Vaginal delivery is anticipated. Assessment/Plan This inpt stay is expected to cross 2 MNs from start of care Yes (preeclampsia) at 1308
--- NOTE | 2017-06-29 06:56 | ACUTE CARE PROGRESS NOTE (QUA) ---
Progress Notes Subjective Date 06/29/17 Time 0655 Note Cervix is now 90 percent, 2 cm, with the presenting vertex at -1 station. Patient is requesting an epidural. Her blood pressure is 171/88 at this time. Assessment/Plan This inpt stay is expected to cross 2 MNs from start of care Yes (preeclampsia) at 0655
[2017-06-29 07:05] VITALS: BP 164/81
--- NOTE | 2017-06-29 08:43 | ACUTE CARE PROGRESS NOTE (QUA) ---
Progress Notes Subjective Date 06/29/17 Time 0842 Note Epidural is now in situ. There is been some decreased variability. Cervix is 2-3 cm. Amniotomy reveals somewhat bloody fluid and a few small clots. An internal monitor has been placed. The patient continues on IV magnesium sulfate and intravenous Pitocin. Assessment/Plan This inpt stay is expected to cross 2 MNs from start of care Yes (preeclampsia) at 0843
--- NOTE | 2017-06-29 08:44 | RADIOLOGY REPORT PS360 ---
US BIOPHYSICAL PROFILE INDICATION: PREECLAMPSIA. TECHNIQUE: ultrasound transabdominal scanning/ MW COMPARISON: Ultrasound biophysical profile 06/15/2017 FINDINGS Single viable intrauterine gestation. Cephalic position. The cervix appears satisfactory. Long, closed Complete survey performed and was unremarkable on the submitted images as in PACS.No discrete anomalies identified on survey imaging by technologist Active fetus. Umbilical cord not visualized on this exam. . Full anatomical survey not performed. Amniotic fluid.-Adequate. SUSHIL 11.10 cm Maternal adnexa -no significant findings. measurements:. Average ultrasound age 37 weeks 0 days. Gestational age 38 weeks 2 days. BPD = 9.16 and measuring 37 weeks 2 days OFD = 11.23 cm equaling 37 weeks 3 days HC = 32.19 cm equaling 36 weeks 3 days AC = 33.19 cm equaling 37 weeks 1 day Heart rate = 122 BPM. Biophysical profile was performed with a score 8 out of 8. IMPRESSION: Single viable intrauterine gestation in cephalic position currently. 37 weeks 0 daysaverage ultrasound age with today's measurements Anterior and lateral placenta. Active fetus. No discrete abnormalities on the ultrasound survey though a complete anatomical survey was not performed
--- NOTE | 2017-06-29 12:53 | ACUTE CARE PROGRESS NOTE (QUA) ---
Progress Notes Subjective Date 06/29/17 Time 1253 Note Cervix not completely effaced, 9 cm, 0 station. Blood pressure stable. Doing well. No active bleeding. Assessment/Plan This inpt stay is expected to cross 2 MNs from start of care Yes (preeclampsia) at 1253
--- NOTE | 2017-06-29 14:05 | Delivery Note ---
Delivery note Delivery date: 06/29/17 Delivery time: 1348 Anesthesia: Epidural Was labor medically induced? Yes Method for inducing labor: Oxytocin Gestational age in weeks: 37 weeks Days: 2 days Delivery prior to 39 weeks? Yes (-induced hypertension) Sex: female score at one minute: 8 at 5 minutes: 9 Type of suction: bulb AF: Clear Delivery procedure: Normal Delivery Delivery of placenta: spontaneous Clinical note This 36-year-old 5, now para 2, AB 3 white female was admitted at 37-2/7 weeks with signs and symptoms of preeclampsia. She was treated with intravenous magnesium sulfate and then induced with intravenous Pitocin. She went steadily to completion and delivered spontaneously, without an episiotomy, at 1348 on 12/15. There was no meconium, no was there a nuchal cord. The babies naso-and oropharynx were bulb suctioned, and the baby cried spontaneously on the perineum , as was delivered. Cord was clamped and cut, 3 vessels were noted to be within the cord, and cord blood was obtained. The cord pH was 7.32. The baby was handed into the arms of the attending tower dragline operator, Dr. Sutherland, who assigned Apgars of 8 at 1 minute and 9 at 5 minutes to this 7 lbs. 9 oz., 19 inch female , born at 1348. The baby was recovered in excellent condition. The placenta was delivered spontaneously, intact, at 1350, making the total time in labor 9 hours 50 minutes. The uterus was inspected and was felt to be clean, and was involuting well, with IV Pitocin running there were no lacerations. The rectovaginal septum was intact at the close of the procedure. The sponge and needle counts correct. The estimated blood loss was 350 mL. The patient tolerated the procedure well, and was recovered in excellent condition. Her blood type is O positive. Her rubella titer is immune. She plans to bottlefeed. at 1015
[2017-06-29 20:00] VITALS: BP 175/86
[2017-06-30 06:33] LABS: HEMOGLOBIN 10.9 g/dL (12.2-16.2)
--- NOTE | 2017-06-30 07:48 | ACUTE CARE PROGRESS NOTE (QUA) ---
Progress Notes Subjective Date 06/30/17 Time 0747 Note This is day number 1. The patient is afebrile. Her vital signs are stable. Her blood pressures have been holding steady in the 140s over high 80s. DTRs are normal. Uterine fundus involuting well. Lochia normal. Baby is doing well. Hemoglobin 10.9 g, but clinically stable. The plan is to serve until 24 hours and then start decreasing the magnesium sulfate. Assessment/Plan This inpt stay is expected to cross 2 MNs from start of care Yes (preeclampsia) at 0748
[2017-06-30 09:23] VITALS: BP 148/75
[2017-06-30 20:00] VITALS: BP 160/87
--- NOTE | 2017-07-01 06:06 | ACUTE CARE PROGRESS NOTE (QUA) ---
Progress Notes Subjective Date 07/01/17 Time 0605 Note This is day number 2. The patient is afebrile. Vital signs stable. Blood pressure in the 150s to 160s over 80s. DTRs are normal. She remains on 1 g of magnesium sulfate. She continues on her methadone. The baby is showing signs of withdrawal. The plan is to wean off magnesium sulfate over the next 24 hours or so. Assessment/Plan This inpt stay is expected to cross 2 MNs from start of care Yes (preeclampsia) at 0606
[2017-07-01 08:01] VITALS: BP 142/84
--- NOTE | 2017-07-01 17:15 | ACUTE CARE PROGRESS NOTE (QUA) ---
Progress Notes Subjective Date 07/01/17 Time 1714 Note Patient is doing well. Blood pressure is now in the 130s over 70s. Deep tendon reflexes are normal. She is on 1/2 g of magnesium sulfate per hour, and this will be discontinued later and the patient observed overnight for possible discharge tomorrow. Assessment/Plan This inpt stay is expected to cross 2 MNs from start of care Yes (preeclampsia) at 2174
[2017-07-01 20:00] VITALS: BP 171/79
--- NOTE | 2017-07-02 06:14 | ACUTE CARE PROGRESS NOTE (QUA) ---
Progress Notes Subjective Date 07/02/17 Time 0613 Note This is hospital day number 5 and day number 4. The patient is afebrile. Her vital signs are stable. Her blood pressure is 145/85. DTRs are normal. She will be discharged today. Assessment/Plan This inpt stay is expected to cross 2 MNs from start of care Yes (preeclampsia) at 0614
--- NOTE | 2017-07-02 06:19 | DISCHARGE SUMMARY STANDARD ---
Discharge Summary Date of admission: 06/28/17 Date of discharge: 07/02/17 Patient condition: Improving Discharge diagnosis (es): 1. Term intrauterine , delivered. 2. Preeclampsia. 3. Methadone dependence. 4. Anemia. Hospital course: This 36-year-old 5, now para 2, AB 3 white female was admitted at 37-2/7 weeks on 06/28/17 with signs and symptoms of preeclampsia. She was treated with intravenous magnesium sulfate and stabilized. On 06/29/17, she was induced with intravenous Pitocin, and labored under labor epidural, which worked well. She went steadily to completion, and delivered spontaneously, without an episiotomy, at 1348 on 06/29/17. The baby was an 8/9, 7 lbs. 9 oz., 19 inch female , who is bottlefeeding and has done well. Should be noted that the patient had been in a methadone clinic, and the baby is being observed for signs of withdrawal. , the patient has done well. She has been weaned off her magnesium sulfate, and her blood pressure this morning is 145/85. Her deep tendon reflexes are normal. Her vital signs are normal. Her uterine fundus has involuted well. Her lochia is normal. Her hemoglobin is 10.9 g, but she is clinically stable. She is not a smoker. He has been maintained on her usual methadone dose, and we'll continue on her methadone clinic. She is discharged home on the fifth hospital and third day on iron and vitamins, and on Tylenol and Motrin, as needed for pain. She is given appropriate instructions as to diet and exercise, and she is to return to the office in 1 week for blood pressure check. Her blood type is O positive. Her rubella titer is immune. at [id number]
[2017-07-02 08:20] VITALS: BP 151/81
== END 2017-07-02 12:26 | disposition home or self-care (01) | DRG 775 ==
LOC: LAB 09:24 → OB 14:06
PROVIDERS: Obstetrics & Gynecology
PROC: 10E0XZZ Delivery of Products of Conception, External Approach (ICD-10-PCS; principal; 2017-06-29)
DX: O13.3 Gestational [pregnancy-induced] hypertension without significant proteinuria, third trimester (principal); F11.20 Opioid dependence, uncomplicated; O99.323 Drug use complicating pregnancy, third trimester; Z37.0 Single live birth; Z3A.37 37 weeks gestation of pregnancy
CPT/HCPCS: C1758; J2405